=== PATIENT | female | born 1980 | race American Indian/Alaskan Native ===

== ENCOUNTER 2017-03-05 13:11 | Emergency (ER) | payer SELFPAY ==
[2017-03-05 13:50] VITALS: BP 157/102
--- NOTE | 2017-03-05 17:26 | Emergency Department Report ---
ED Back Pain/Injury HPI - General Chief Complaint: Upper Respiratory Infection Stated Complaint: FLU SYMPTOMS Time Seen by Provider: 03/05/17 17:25 Source: patient Limitations: No Limitations - History of Present Illness MD Complaint: back pain - Related Data Allergies Allergy/AdvReac Type Severity Reaction Status Date / Time No Known Allergies Allergy Unverified 03/05/17 13:46 ED Review of Systems ROS: Stated complaint: FLU SYMPTOMS Other details as noted in HPI ED Past Medical Hx - Past Medical History Previous Medical History?: No - Surgical History Past Surgical History?: No - Social History Smoking Status: Former Smoker Substance Use Type: Alcohol, Non Opiate Pain, Other ED Physical Exam - General Limitations: No Limitations ED Course Vital Signs 03/05/17 13:46 Temperature 98.1 F Pulse Rate 106 H Respiratory 20 Rate Blood Pressure 157/102 O2 Sat by Pulse 97 Oximetry Critical care attestation.: If time is entered above; I have spent that time in minutes in the direct care of this critically ill patient, excluding procedure time. ED Disposition Condition: Stable Referrals: PRIMARY CARE, [Primary Care Provider] - 3-5 Days
--- NOTE | 2017-03-05 18:10 | Emergency Department Report ---
- General Chief Complaint: Upper Respiratory Infection Stated Complaint: FLU SYMPTOMS Time Seen by Provider: 03/05/17 17:25 Source: patient Mode of arrival: Ambulatory Limitations: No Limitations - History of Present Illness Initial Comments: 36-year-old female past medical history neurofibromatosis, smoker presents with complaint of approximately 4 days of productive cough of yellowish sputum. Patient states she has had some minor body aches, subjective fever, no chills. Patient denies any chest pain or palpitations states that she has been taking [id number] cold medicine with minimal relief of her pain. MD Complaint: cough - Related Data Previous Rx's Medication Instructions Recorded Last Taken Type ALBUTEROL Inhaler [ProAir HFA 1 puff IH Q4H PRN #1 inha 03/05/17 Unknown Rx Inhaler] Azithromycin [Zithromax Z-MIR] 250 mg PO QDAY #6 tablet 03/05/17 Unknown Rx Naproxen [Naprosyn TAB] 500 mg PO BID PRN #20 tablet 03/05/17 Unknown Rx Prednisone [predniSONE 10 mg 10 mg PO .TAPER #1 tab.ds.pk 03/05/17 Unknown Rx (6-Day Pack, 21 Tabs)] guaiFENesin DM [Robitussin Dm] 10 ml PO Q6HR PRN #1 bottle 03/05/17 Unknown Rx Allergies Allergy/AdvReac Type Severity Reaction Status Date / Time No Known Allergies Allergy Unverified 03/05/17 13:46 ED Review of Systems ROS: Stated complaint: FLU SYMPTOMS Other details as noted in HPI ED Past Medical Hx - Past Medical History Previous Medical History?: No - Surgical History Past Surgical History?: No - Social History Smoking Status: Former Smoker Substance Use Type: Alcohol, Non Opiate Pain, Other - Medications Home Medications: Home Medications Medication Instructions Recorded Confirmed Last Taken Type ALBUTEROL Inhaler [ProAir HFA 1 puff IH Q4H PRN #1 inha 03/05/17 Unknown Rx Inhaler] Azithromycin [Zithromax Z-MIR] 250 mg PO QDAY #6 tablet 03/05/17 Unknown Rx Naproxen [Naprosyn TAB] 500 mg PO BID PRN #20 tablet 03/05/17 Unknown Rx Prednisone [predniSONE 10 mg 10 mg PO .TAPER #1 tab.ds.pk 03/05/17 Unknown Rx (6-Day Pack, 21 Tabs)] guaiFENesin DM [Robitussin Dm] 10 ml PO Q6HR PRN #1 bottle 03/05/17 Unknown Rx ED Physical Exam - General Limitations: No Limitations General appearance: alert, in no apparent distress - Head Head exam: Present: atraumatic, normocephalic - Eye Eye exam: Present: normal appearance, PERRL, EOMI - ENT ENT exam: Present: mucous membranes moist - Neck Neck exam: Present: normal inspection - Respiratory Respiratory exam: Present: normal lung sounds bilaterally, wheezes (mild wheezing on auscultation bilaterally). Absent: respiratory distress - Cardiovascular Cardiovascular Exam: Present: regular rate, normal rhythm. Absent: systolic murmur, diastolic murmur, rubs, gallop - GI/Abdominal GI/Abdominal exam: Present: soft, normal bowel sounds - Extremities Exam Extremities exam: Present: normal inspection - Back Exam Back exam: Present: normal inspection - Neurological Exam Neurological exam: Present: alert, oriented X3, CN II-XII intact, normal gait - Psychiatric Psychiatric exam: Present: normal affect, normal mood - Skin Skin exam: Present: warm, dry, intact, normal color, other (patient has skin tags and lesions on skin consistent with neurofibromatosis). Absent: rash ED Course Vital Signs 03/05/17 13:46 Temperature 98.1 F Pulse Rate 106 H Respiratory 20 Rate Blood Pressure 157/102 O2 Sat by Pulse 97 Oximetry ED Medical Decision Making - Lab Data Result diagrams: 03/05/17 18:42 03/05/17 18:42 - Medical Decision Making A/P: Reactive airway disease 1-naproxen, Bromfed, Z-Mir, prednisone Dosepak, albuterol inhaler. Lab work and x-ray unremarkable 2-follow up with primary care doctor 3-patient has experienced significant relief of wheezing, minimal wheezing on auscultation compared to initial exam 4- I advised patient to return to the ED for any fevers chills worsening productive cough or worsening wheezing despite use of medications. 5- I repeated pts vital signs before discharge: BP 147/88, o2 sat 97% on RA, HR 101, RR 18 T 99F oral. Critical care attestation.: If time is entered above; I have spent that time in minutes in the direct care of this critically ill patient, excluding procedure time. ED Disposition Clinical Impression: Reactive airway disease Qualifiers: Asthma severity: mild intermittent Asthma complication type: with acute exacerbation Qualified Code(s): J45.21 - Mild intermittent asthma with (acute) exacerbation Disposition: TO HOME OR SELFCARE Is pt being admited?: No Does the pt Need Aspirin: No Condition: Stable Instructions: Reactive Airways Disease (ED), Cold Symptoms (ED) Prescriptions: ALBUTEROL Inhaler [ProAir HFA Inhaler] 1 puff IH Q4H PRN #1 inha PRN Reason: Wheezing Azithromycin [Zithromax Z-MIR] 250 mg PO QDAY #6 tablet guaiFENesin DM [Robitussin Dm] 10 ml PO Q6HR PRN #1 bottle PRN Reason: Cough Naproxen [Naprosyn TAB] 500 mg PO BID PRN #20 tablet PRN Reason: Fever Prednisone [predniSONE 10 mg (6-Day Pack, 21 Tabs)] 10 mg PO .TAPER #1 tab.ds.pk Forms: Work/School Release Form(ED) Time of Disposition: 21:51
[2017-03-05] MEDS ORDERED: DELTASONE PO ONE (18:18)
[2017-03-05] MEDS ORDERED: DUONEB 0.5 MG-3 MG/3 ML SOLN IH ONE ×2 (18:18→21:07)
[2017-03-05] MEDS ORDERED: ZITHROMAX PO ONE (18:18)
[2017-03-05] MEDS ORDERED: ROBITUSSIN DM PO ONE (18:18)
[2017-03-05] MEDS ORDERED: PEPCID PO ONE (18:18)
[2017-03-05 19:17] LABS: Hematocrit 37.5 % (30.3-42.9); Hemoglobin 11.8 gm/dl (10.1-14.3); Mean Corpuscular HGB Conc 31 % (30-34); Mean Corpuscular Volume 78 fl (79-97); Platelet Count 337 K/mm3 (140-440); Red Cell Distribution Width 15.1 % (13.2-15.2); White Blood Count 11.4 K/mm3 (4.5-11.0)
--- NOTE | 2017-03-05 19:17 | XRay Report ---
FINAL REPORT PROCEDURE: XR CHEST ROUTINE 2V TECHNIQUE: PA and lateral chest radiographs were obtained. CPT 55391 HISTORY: worsening cough, productive COMPARISON: No prior studies are available for comparison. FINDINGS: Heart: Normal contour. Mediastinum/Vessels: Normal contour. Lungs/Pleural space: No infiltrate, effusion, or pneumothorax. Bony thorax: No acute osseous abnormality. Other: IMPRESSION: No infiltrates are identified.
[2017-03-05 19:18] LABS: Anion Gap 16 mmol/L; Blood Urea Nitrogen 6 mg/dL (7-17); Carbon Dioxide 24 mmol/L (22-30); Chloride 101.8 mmol/L (98-107); Glucose 91 mg/dL (65-100); Potassium 3.8 mmol/L (3.6-5.0); Sodium 138 mmol/L (137-145)
[2017-03-05 19:26] LABS: Mean Corpuscular Hemoglobin 25 pg (28-32)
[2017-03-05 20:17] LABS: Anisocytosis 1+; Blastocytes % (Manual) 0 %
[2017-03-05 20:18] LABS: Diff Status Complete; Hypochromasia 1+; Platelet Estimate Consistent w Auto
== END 2017-03-05 22:14 | disposition home or self-care (01) ==
LOC: ED 13:11
DX: J45.21 Mild intermittent asthma with (acute) exacerbation (principal); Z87.891 Personal history of nicotine dependence
CPT/HCPCS: 36415; 71020; 80048; 82805; 85007; 85025; 99284; J7512

== ENCOUNTER 2017-03-21 12:51 | Emergency (ER) | payer SELFPAY ==
[2017-03-21 15:49] LABS: Basophils % (Auto) 1.2 % (0.0-1.8); Eosinophils % (Auto) 14.5 % (0.0-4.3); Hematocrit 36.2 % (30.3-42.9); Hemoglobin 11.2 gm/dl (10.1-14.3); Mean Corpuscular HGB Conc 31 % (30-34); Mean Corpuscular Volume 79 fl (79-97); Platelet Count 270 K/mm3 (140-440); Red Blood Count 4.56 M/mm3 (3.65-5.03); Red Cell Distribution Width 15.9 % (13.2-15.2); White Blood Count 12.1 K/mm3 (4.5-11.0)
[2017-03-21 15:50] LABS: Anion Gap 16 mmol/L; BUN/Creatinine Ratio 17.14; Blood Urea Nitrogen 12 mg/dL (7-17); Carbon Dioxide 25 mmol/L (22-30); Glucose 94 mg/dL (65-100); Sodium 142 mmol/L (137-145)
[2017-03-21 15:52] LABS: Mean Corpuscular Hemoglobin 25 pg (28-32)
--- NOTE | 2017-03-21 16:55 | XRay Report ---
CHEST 2 VIEWS INDICATION: Cough, shortness of breath. COMPARISON: 03/05/2017. FINDINGS: PA and lateral chest radiographs demonstrate normal cardiomediastinal silhouette. Clear lungs. Mild anterior eventration of the right hemidiaphragm again noted. Intact bones. CONCLUSION: No acute disease in the chest, stable. Thank you for the opportunity to participate in this patient's care.
--- NOTE | 2017-03-21 17:50 | Emergency Department Report ---
Entered by GERMAN KARIMI, acting as scribe for MELANIE GONZALEZ PA. Chief Complaint: Chest Pain Stated Complaint: CHEST PAIN/NAUSEA/DIZZINESS Time Seen by Provider: 03/21/17 14:29 - HPI History of Present Illness: Patient c/o burning, sharp generalized chest pain for 2 days. Patient was seen in this ED 1 week ago and was told she had bronchitis. Patient states her chest pain is worse than 1 week ago. Notes her symptoms are similar to when she was diagnosed with bronchitis. Reports cough with sputum and SOB. Reports wheezing. Reports nausea and "a little vomiting" Denies PMHx of asthma. Denies taking new medications. - ROS Review of Systems: All systems are negative unless stated in the HPI above. - Exam Vital Signs: Vital Signs 03/21/17 13:03 Temperature 98.6 F Pulse Rate 99 H Respiratory 16 Rate Blood Pressure 132/85 O2 Sat by Pulse 99 Oximetry Physical Exam: GENERAL: Patient is alert and oriented x 3. No apparent distress, normal gait, atraumatic. LUNGS: Symmetrical with respiration. No rales or crackles, CTAB. Wheezing present bilaterally. HEART: Tachycardic. Regular rhythm with normal S1/S2 present. No murmurs, rubs , or gallops. MSE screening note: Focused history and physical exam performed. Due to findings the following was ordered: ED Medical Decision Making - Lab Data Result diagrams: 03/21/17 15:18 03/21/17 15:18 - EKG Data EKG shows normal: sinus rhythm Rate: normal - EKG Data When compared to previous EKG there are: no significant change Interpretation: no acute changes, normal EKG - Medical Decision Making Patient screened by provider in triage area. Labs and chest X-ray ordered and sent in for patient. Chest x-ray normal, labs within normal limits mildly elevated white count Patient can be seen in fast track by [facility] provider ED Disposition for MSE Condition: Stable This documentation as recorded by the scribe,GERMAN KARIMI,accurately reflects the service I personally performed and the decisions made by CARLOS rodríguez OYINLOLA A, PA.
[2017-03-21] MEDS ORDERED: DUONEB *Not for PRN Use IH ONE ×3 (18:53→20:47)
[2017-03-21] MEDS ORDERED: DELTASONE PO ONE (19:13)
[2017-03-21 20:19] LABS: Alanine Aminotransferase 18 units/L (7-56); Albumin 3.5 g/dL (3.9-5); Albumin/Globulin Ratio 1.3 %; Alkaline Phosphatase 80 units/L (35-129); Amylase 81 units/L (27-131); Bilirubin,Total < 0.20 mg/dL (0.1-1.2); Lipase 32 units/L (13-60); Total Protein 6.1 g/dL (6.3-8.2)
--- NOTE | 2017-03-21 20:46 | Emergency Department Report ---
ED Chest Pain HPI - General Chief Complaint: Chest Pain Stated Complaint: CHEST PAIN/NAUSEA/DIZZINESS Time Seen by Provider: 03/21/17 18:53 Source: patient Mode of arrival: Ambulatory Limitations: No Limitations - History of Present Illness Initial Comments: 36-year-old female past medical history asthma, neurofibromatosis presents with complaint of 3 days of intermittent shortness of breath and wheezing. Patient denies smoking. States that she has been constipated and has some sense of abdominal bloating but has been passing gas. On exam patient is wheezing and states she feels slightly short of breath. Denies chest pain palpitations, states she has not filled her medicines for asthma because of insurance issues. Denies any vomiting but states she felt slightly nauseous earlier. Onset/Timin -: days(s) Onset: during rest Pain Location: substernal Severity: mild Quality: tightness, other (wheezing) Consistency: intermittent Other Symptoms: cough Aspirin use within the Past 7 Days: (0) No - Related Data On Oral Contraceptives: No Previous Rx's Medication Instructions Recorded Last Taken Type ALBUTEROL Inhaler [ProAir HFA 1 puff IH Q4H PRN #1 inha 03/05/17 Unknown Rx Inhaler] Azithromycin [Zithromax Z-MIR] 250 mg PO QDAY #6 tablet 03/05/17 Unknown Rx Naproxen [Naprosyn TAB] 500 mg PO BID PRN #20 tablet 03/05/17 Unknown Rx Prednisone [predniSONE 10 mg 10 mg PO .TAPER #1 tab.ds.pk 03/05/17 Unknown Rx (6-Day Pack, 21 Tabs)] guaiFENesin DM [Robitussin Dm] 10 ml PO Q6HR PRN #1 bottle 03/05/17 Unknown Rx ALBUTEROL Inhaler [ProAir HFA 1 puff IH Q4H PRN #1 inha 03/21/17 Unknown Rx Inhaler] Albuterol Sulfate [Albuterol 0.63% 0.63 mg IH TID PRN #1 box 03/21/17 Unknown Rx NEBS] Docusate Sodium [Colace] 100 mg PO BID PRN #30 capsule 03/21/17 Unknown Rx Polyethylene Glycol 3350 [Miralax 17 gm PO QDAY PRN #1 box 03/21/17 Unknown Rx 3350] Prednisone [predniSONE 5 mg (6-Day 5 mg PO .TAPER #1 tab.ds.pk 03/21/17 Unknown Rx Pack, 21 Tabs)] Allergies Allergy/AdvReac Type Severity Reaction Status Date / Time No Known Allergies Allergy Unverified 03/05/17 13:46 Heart Score - HEART Score History: Slightly suspicious EKG: Normal Age: < 45 Risk factors: No known risk factors Troponin: < normal limit HEART Score: 0 ED Review of Systems ROS: Stated complaint: CHEST PAIN/NAUSEA/DIZZINESS Other details as noted in HPI Constitutional: denies: chills, fever Eyes: denies: eye pain, eye discharge, vision change ENT: denies: ear pain, throat pain Respiratory: shortness of breath, wheezing. denies: cough Cardiovascular: denies: chest pain, palpitations Endocrine: no symptoms reported Gastrointestinal: denies: abdominal pain, nausea, diarrhea Genitourinary: denies: urgency, dysuria, discharge Musculoskeletal: denies: back pain, joint swelling, arthralgia Skin: denies: rash, lesions Neurological: denies: headache, weakness, paresthesias Psychiatric: denies: anxiety, depression Hematological/Lymphatic: denies: easy bleeding, easy bruising ED Past Medical Hx - Past Medical History Previous Medical History?: Yes Additional medical history: bronchitis - Surgical History Past Surgical History?: No - Social History Smoking Status: Never Smoker Substance Use Type: Alcohol - Medications Home Medications: Home Medications Medication Instructions Recorded Confirmed Last Taken Type ALBUTEROL Inhaler [ProAir HFA 1 puff IH Q4H PRN #1 inha 03/05/17 Unknown Rx Inhaler] Azithromycin [Zithromax Z-MIR] 250 mg PO QDAY #6 tablet 03/05/17 Unknown Rx Naproxen [Naprosyn TAB] 500 mg PO BID PRN #20 tablet 03/05/17 Unknown Rx Prednisone [predniSONE 10 mg 10 mg PO .TAPER #1 tab.ds.pk 03/05/17 Unknown Rx (6-Day Pack, 21 Tabs)] guaiFENesin DM [Robitussin Dm] 10 ml PO Q6HR PRN #1 bottle 03/05/17 Unknown Rx ALBUTEROL Inhaler [ProAir HFA 1 puff IH Q4H PRN #1 inha 03/21/17 Unknown Rx Inhaler] Albuterol Sulfate [Albuterol 0.63% 0.63 mg IH TID PRN #1 box 03/21/17 Unknown Rx NEBS] Docusate Sodium [Colace] 100 mg PO BID PRN #30 capsule 03/21/17 Unknown Rx Polyethylene Glycol 3350 [Miralax 17 gm PO QDAY PRN #1 box 03/21/17 Unknown Rx 3350] Prednisone [predniSONE 5 mg (6-Day 5 mg PO .TAPER #1 tab.ds.pk 03/21/17 Unknown Rx Pack, 21 Tabs)] ED Physical Exam - General Limitations: No Limitations General appearance: alert, in no apparent distress - Head Head exam: Present: atraumatic, normocephalic - Eye Eye exam: Present: normal appearance, PERRL, EOMI - ENT ENT exam: Present: mucous membranes moist - Neck Neck exam: Present: normal inspection - Respiratory Respiratory exam: Present: wheezes (patient has audible wheezing bilaterally on auscultation of both lung shankar) - Cardiovascular Cardiovascular Exam: Present: regular rate, normal rhythm. Absent: systolic murmur, diastolic murmur, rubs, gallop - GI/Abdominal GI/Abdominal exam: Present: soft (abdomen soft nontender nondistended bowel sounds positive all 4 quadrants no Landis sign negative at McBurney's point, iliopsoas and Rovsing sign negative), normal bowel sounds - Extremities Exam Extremities exam: Present: normal inspection - Back Exam Back exam: Present: normal inspection - Neurological Exam Neurological exam: Present: alert, oriented X3, CN II-XII intact, normal gait - Psychiatric Psychiatric exam: Present: normal affect, normal mood - Skin Skin exam: Present: warm, dry, intact, normal color, other (patient has lesions on skin consistent with neurofibromatosis). Absent: rash ED Course Vital Signs 03/21/17 03/21/17 03/21/17 13:03 18:51 19:17 Temperature 98.6 F Pulse Rate 99 H 92 H Pulse Rate [ Throughout] Respiratory 16 20 22 Rate Respiratory Rate [ Throughout] Blood Pressure 132/85 Blood Pressure 114/81 [Left] O2 Sat by Pulse 99 100 Oximetry 03/21/17 03/21/17 03/21/17 20:53 20:54 21:52 Temperature Pulse Rate 89 Pulse Rate [ 82 89 Throughout] Respiratory 20 Rate Respiratory 12 18 Rate [ Throughout] Blood Pressure Blood Pressure 130/79 [Left] O2 Sat by Pulse 99 Oximetry RAJ score - Raj Score Age > 65: (0) No Aspirin use within the Past 7 Days: (0) No 3 or more CAD Risk Factors: (0) No 2 or more Angina events in past 24 hrs: (0) No Known CAD with more than 50% Stenosis: (0) No Elevated Cardiac Markers: (0) No ST Deviation Greater than 0.5mm: (0) No RAJ Score: 0 ED Medical Decision Making - Lab Data Result diagrams: 03/21/17 15:18 03/21/17 15:18 - Medical Decision Making A/P: Asthma exacerbation, constipation 1-patient feels significantly better after DuoNeb treatments and prednisone, will give prednisone Dosepak refill albuterol inhaler as well as nebulizer vials 2-patient has low RAJ score and low HEART score, low risk stratification. I discussed this with Dr. Rico and will give the patient outpatient cardiology follow-up. Troponin negative 2, d-dimer negative 3-Colace and MiraLAX for constipation. Patient is still passing gas and abdomen is nontender to palpation 4- patient's oxygen saturation is 100% on room air Critical care attestation.: If time is entered above; I have spent that time in minutes in the direct care of this critically ill patient, excluding procedure time. ED Disposition Clinical Impression: Asthma exacerbation Disposition: DC-01 TO HOME OR SELFCARE Is pt being admited?: No Does the pt Need Aspirin: No Condition: Stable Instructions: Asthma (ED) Prescriptions: ALBUTEROL Inhaler [ProAir HFA Inhaler] 1 puff IH Q4H PRN #1 inha PRN Reason: Wheezing Albuterol Sulfate [Albuterol 0.63% NEBS] 0.63 mg IH TID PRN #1 box PRN Reason: Wheezing Docusate Sodium [Colace] 100 mg PO BID PRN #30 capsule PRN Reason: Constipation Polyethylene Glycol 3350 [Miralax 3350] 17 gm PO QDAY PRN #1 box PRN Reason: Constipation Prednisone [predniSONE 5 mg (6-Day Pack, 21 Tabs)] 5 mg PO .TAPER #1 tab.ds.pk Referrals: LANDY ARMSTRONG MD [Staff Physician] - 3-5 Days MEGHNA SORIA MD [Staff Physician] - 3-5 Days Forms: Work/School Release Form(ED) Time of Disposition: 22:44
[2017-03-21 20:49] LABS: Bilirubin,Direct < 0.2 mg/dL (0-0.2)
[2017-03-21 21:52] VITALS: BP 130/79
== END 2017-03-21 23:05 | disposition home or self-care (01) ==
LOC: ED 12:51
DX: J45.901 Unspecified asthma with (acute) exacerbation (principal)
CPT/HCPCS: 36415; 71020; 80048; 80074; 82150; 82805; 83690; 84484; 84703; 85025; 85379; 93005; 93010; 94640; 99285; J7512

== ENCOUNTER 2017-04-04 08:28 | Inpatient (IN) | payer OTHER ==
[2017-04-04] MEDS ORDERED: PROVENTIL IH ONE ×4 (09:00→12:32)
[2017-04-04] MEDS ORDERED: DUONEB *Not for PRN Use IH ONE ×3 (09:00→10:13)
[2017-04-04] MEDS ORDERED: DELTASONE PO ONE (09:09)
[2017-04-04] MEDS ORDERED: DELTASONE ONE (09:10)
--- NOTE | 2017-04-04 10:18 | Emergency Department Report ---
ED Shortness of Breath HPI - General Chief Complaint: Adult Asthma Stated Complaint: ASTHMA/KANCHAN Time Seen by Provider: 04/04/17 10:08 Source: patient Mode of arrival: Ambulatory Limitations: No Limitations - History of Present Illness Initial Comments: 36-year-old female presents to the emergency department complaining of difficulty breathing. Patient states she began having difficulty breathing this morning. She reports wheezing and tightness in her chest. She reports cough productive of green sputum and nausea. There has been no fever. Patient states that she was diagnosed with asthma approximately one year ago. At that time, she was being treated for bronchitis. She states she is not currently on any medications for her asthma. She had been doing well until approximately 3 weeks ago when she had another bout of bronchitis. She states she was treated with the steroids taper. Prior to my examining the patient, the patient has received one DuoNeb treatment and an additional 2.5 mg of albuterol. She has also received oral prednisone. She states that she feels somewhat better, but is not at baseline. There are no other complaints. MD Complaint: shortness of breath, cough -: Sudden, This morning Severity: mild Pain Scale: 1 Quality: other (tightness) Consistency: constant Improves With: bronchodilators Worsens With: nothing Known History Of: asthma Context: recent URI Associated Symptoms: denies other symptoms - Related Data Previous Rx's Medication Instructions Recorded Last Taken Type ALBUTEROL Inhaler [ProAir HFA 1 puff IH Q4H PRN #1 inha 03/05/17 Unknown Rx Inhaler] Azithromycin [Zithromax Z-MIR] 250 mg PO QDAY #6 tablet 03/05/17 Unknown Rx Naproxen [Naprosyn TAB] 500 mg PO BID PRN #20 tablet 03/05/17 Unknown Rx Prednisone [predniSONE 10 mg 10 mg PO .TAPER #1 tab.ds.pk 03/05/17 Unknown Rx (6-Day Pack, 21 Tabs)] guaiFENesin DM [Robitussin Dm] 10 ml PO Q6HR PRN #1 bottle 03/05/17 Unknown Rx ALBUTEROL Inhaler [ProAir HFA 1 puff IH Q4H PRN #1 inha 03/21/17 Unknown Rx Inhaler] Albuterol Sulfate [Albuterol 0.63% 0.63 mg IH TID PRN #1 box 03/21/17 Unknown Rx NEBS] Docusate Sodium [Colace] 100 mg PO BID PRN #30 capsule 03/21/17 Unknown Rx Polyethylene Glycol 3350 [Miralax 17 gm PO QDAY PRN #1 box 03/21/17 Unknown Rx 3350] Prednisone [predniSONE 5 mg (6-Day 5 mg PO .TAPER #1 tab.ds.pk 03/21/17 Unknown Rx Pack, 21 Tabs)] Allergies Allergy/AdvReac Type Severity Reaction Status Date / Time No Known Allergies Allergy Verified 04/04/17 09:06 ED Review of Systems ROS: Stated complaint: ASTHMA/KANCHAN Other details as noted in HPI Comment: All other systems reviewed and negative Respiratory: cough, shortness of breath, wheezing Cardiovascular: chest pain Gastrointestinal: nausea ED Past Medical Hx - Past Medical History Previous Medical History?: Yes Hx Asthma: Yes Additional medical history: bronchitis - Surgical History Past Surgical History?: No - Family History Family history: no significant - Social History Smoking Status: Never Smoker Substance Use Type: None - Medications Home Medications: Home Medications Medication Instructions Recorded Confirmed Last Taken Type ALBUTEROL Inhaler [ProAir HFA 1 puff IH Q4H PRN #1 inha 03/05/17 Unknown Rx Inhaler] Azithromycin [Zithromax Z-MIR] 250 mg PO QDAY #6 tablet 03/05/17 Unknown Rx Naproxen [Naprosyn TAB] 500 mg PO BID PRN #20 tablet 03/05/17 Unknown Rx Prednisone [predniSONE 10 mg 10 mg PO .TAPER #1 tab.ds.pk 03/05/17 Unknown Rx (6-Day Pack, 21 Tabs)] guaiFENesin DM [Robitussin Dm] 10 ml PO Q6HR PRN #1 bottle 03/05/17 Unknown Rx ALBUTEROL Inhaler [ProAir HFA 1 puff IH Q4H PRN #1 inha 03/21/17 Unknown Rx Inhaler] Albuterol Sulfate [Albuterol 0.63% 0.63 mg IH TID PRN #1 box 03/21/17 Unknown Rx NEBS] Docusate Sodium [Colace] 100 mg PO BID PRN #30 capsule 03/21/17 Unknown Rx Polyethylene Glycol 3350 [Miralax 17 gm PO QDAY PRN #1 box 03/21/17 Unknown Rx 3350] Prednisone [predniSONE 5 mg (6-Day 5 mg PO .TAPER #1 tab.ds.pk 03/21/17 Unknown Rx Pack, 21 Tabs)] ED Physical Exam - General Limitations: No Limitations General appearance: alert, in no apparent distress - Head Head exam: Present: atraumatic, normocephalic - Eye Eye exam: Present: normal appearance, PERRL, EOMI - ENT ENT exam: Present: normal exam, normal orophraynx, mucous membranes moist - Neck Neck exam: Present: normal inspection, full ROM. Absent: tenderness - Respiratory Respiratory exam: Present: wheezes (diffuse posterior expiratory). Absent: respiratory distress - Cardiovascular Cardiovascular Exam: Present: regular rate, normal rhythm, normal heart sounds - GI/Abdominal GI/Abdominal exam: Present: soft, normal bowel sounds. Absent: distended, tenderness - Extremities Exam Extremities exam: Present: normal inspection, full ROM. Absent: tenderness - Neurological Exam Neurological exam: Present: alert, oriented X3. Absent: motor sensory deficit - Skin Skin exam: Present: warm, dry, intact, other (multiple skin tags noted all over) ED Course Vital Signs 04/04/17 04/04/17 08:29 09:15 Temperature 98.6 F Pulse Rate 111 H Respiratory 26 H 20 Rate Blood Pressure 154/90 O2 Sat by Pulse 95 100 Oximetry ED Medical Decision Making - Radiology Data Radiology results: image reviewed interpreted by me: Chest x-ray shows no acute cardiopulmonary abnormality. - Medical Decision Making Imaging results reviewed and discussed with the patient. After multiple nebulizer treatments, the patient continues to have wheezing and states she is not breathing at her baseline. Obtaining labs, giving additional nebulizer treatments, and giving IV magnesium. Patient is to be admitted by the hospitalist. - Differential Diagnosis asthma exacerbation, bronchitis, pneumonia Critical care attestation.: If time is entered above; I have spent that time in minutes in the direct care of this critically ill patient, excluding procedure time. ED Disposition Clinical Impression: Asthma exacerbation Disposition: OP ADMIT IP TO THIS HOSP Is pt being admited?: Yes Condition: Stable Time of Disposition: 12:35
--- NOTE | 2017-04-04 11:30 | XRay Report ---
CHEST ONE VIEW INDICATION: Productive cough. COMPARISON: 03/21/2017. FINDINGS: Portable, single, frontal chest radiograph demonstrates normal cardiomediastinal silhouette. Clear lungs. Unremarkable bones. Stable mildly eventrated right hemidiaphragm. CONCLUSION: No acute disease in the chest. Thank you for the opportunity to participate in this patient's care.
[2017-04-04] MEDS ORDERED: MAGNESIUM SULFATE 2GM/50ML 2 GM/50 ML BAG IV ONE (12:32)
--- NOTE | 2017-04-04 13:17 | Admit Criteria Form ---
Admission Criteria Documentation: ASTHMA Clinical Indications for Admission to Inpatient Care (Place 'X' for any and all applicable criteria): Admission is indicated for ANY ONE of the following (1)(2)(3)(4)(5): [ ]I. Absent or markedly diminished breath sounds (silent chest) [ ]II. Oxygen saturation < 92% [ ]III. PaCO2 = / > 42 mm Hg (5.6 kPa) [ ]IV. Peak expiratory flow rate < 40% of predicted or personal best after treatment. [ ]V. Peak expiratory flow rate < 33% of predicted or personal before after treatment [ ]. Change in mental status [ ]VII. Ventilatory support required [ ]VIII. PaO2 < 60 mm Hg (8.0 kPa) [ ]IX. Cyanosis [ ]X. Cardiac dysrhythmia (e.g., bradycardia) [ ]XI. Hemodynamic instability [ ]XII. Radiographic evidence of complication requiring inpatient treatment (e.g., pneumonia, pneumothorax) [X ]XIII. Inpatient admission required rather than observation care (also use Asthma: Observation Care guideline as appropriate) because of ANY ONE of the following: [X ]a) Respiratory finding that is severe or persistent (eg, dyspnea, tachypnea, accessory muscle use) [ ]b) Airflow measurements less than 60% of predicted or personal best that persist (e.g., over 24 hours) or worsen despite treatments [ ]c) Supplemental oxygen or respiratory treatments for over 24 hours that are performable only in acute inpatient setting [ ]d) Other condition, treatment or monitoring requiring inpatient admission. Extended stay beyond goal length of stay may be needed for (26)(27)(28): [ ]a) Severe respiratory failure (23) (29) (30) [ ]b) Secondary causes and complications (25) [ ]c) Status asthmaticus [ ]d) Chronic obstructive asthma [ ]e) Older patients (29) [ ]f) Slow resolution [ ]g) Clinically significant exacerbation of comorbidities (eg, tara. heart failure, atrial fibrillation) The original [employer] content created by [employer] has been revised. The portions of the content which have been revised are identified through the use of italic text or in bold, and [email or web address] has neither reviewed nor approved the modified material. All other unmodified content is copyright [employer] Please see references footnoted in the original [facility] edition 2016 Admission Criteria Met: Yes
[2017-04-04 13:24] LABS: Hemoglobin 11.6 gm/dl (10.1-14.3); Mean Corpuscular HGB Conc 32 % (30-34); Mean Corpuscular Volume 77 fl (79-97); Platelet Count 307 K/mm3 (140-440); Red Blood Count 4.66 M/mm3 (3.65-5.03); Red Cell Distribution Width 15.9 % (13.2-15.2); White Blood Count 13.3 K/mm3 (4.5-11.0)
[2017-04-04 13:30] LABS: Mean Corpuscular Hemoglobin 25 pg (28-32)
[2017-04-04 13:41] LABS: Eosinophils % (Auto) 1.2 % (0.0-4.3)
[2017-04-04 13:42] LABS: Anion Gap 17 mmol/L; BUN/Creatinine Ratio 7.14; Blood Urea Nitrogen 5 mg/dL (7-17); Calcium 10.4 mg/dL (8.4-10.2); Carbon Dioxide 25 mmol/L (22-30); Chloride 101.5 mmol/L (98-107); Glucose 131 mg/dL (65-100); Potassium 4.2 mmol/L (3.6-5.0); Sodium 139 mmol/L (137-145)
[2017-04-04] MEDS ORDERED: ZOFRAN IV PRN (13:57)
[2017-04-04] MEDS ORDERED: DULCOLAX PR PRN (13:57)
[2017-04-04] MEDS ORDERED: MILK OF MAGNESIA PO PRN (13:57)
[2017-04-04 14:15] LABS: Blastocytes % (Manual) 0 %
[2017-04-04 14:16] LABS: Diff Status Complete; Hypochromasia 1+; Platelet Estimate Consistent w Auto; Polychromasia Few
[2017-04-04] MEDS: TYLENOL PO PRN ×2 (19:02→22:27)
--- NOTE | 2017-04-05 08:38 | History and Physical Report ---
History of Present Illness Date of admission: 04/04/17 13:57 Chief complaint: I cant breathe History of present illness: 36 YO Female with Asthma, Obesity, Medication Noncompliance, Lost to outpatient F/U presents to ED for evaluation. Pt states that she has been experiencing shortness of breath for the past day with worsening symptoms over the past 2 hours. Pt acknowledges wheezing and dry cough. Pt acknowledges exposure to asthma triggers. Pt denies feever, chills, CP, Palpitations, NVD, syncope, prolonged immobility/travel, leg swelling, calf pain, Individual/family history of DVT/PE, or recent ill contacts. Past History Past Medical History: other (asthma,obesity) Past Surgical History: No surgical history, Other (reviewed) Social history: single, lives with family. denies: alcohol abuse, prescription drug abuse Family history: hypertension Medications and Allergies Allergies Allergy/AdvReac Type Severity Reaction Status Date / Time No Known Allergies Allergy Verified 04/04/17 09:06 Home Medications Medication Instructions Recorded Confirmed Last Taken Type guaiFENesin DM [Robitussin Dm] 10 ml PO Q6HR PRN #1 bottle 03/05/17 04/04/17 03:00 Rx Active Meds: Active Medications Acetaminophen (Tylenol) 650 mg PO Q4H PRN PRN Reason: Pain MILD(1-3)/Fever >100.5/ZENDEJAS Last Admin: 04/04/17 22:27 Dose: 650 mg Bisacodyl (Dulcolax) 10 mg MA QDAY PRN PRN Reason: Constipation unrelieved by [facility] [place] Azithromycin 500 mg/ Sodium (Chloride) 250 mls @ 250 mls/hr IV Q24HR [facility] Magnesium Hydroxide (Milk Of Magnesia) 30 ml PO Q4H PRN PRN Reason: Constipation Methylprednisolone Sodium Succinate (Solu-Medrol) 40 mg IV BID [facility] Last Admin: 04/04/17 22:20 Dose: 40 mg Ondansetron HCl (Zofran) 4 mg IV Q8H PRN PRN Reason: N/V unrelieved by Reglan Review of Systems All systems: negative Constitutional: no weight loss Ears, nose, mouth and throat: no ear pain Breasts: no swelling Cardiovascular: shortness of breath, no chest pain Respiratory: cough Gastrointestinal: no abdominal pain Genitourinary Female: no dysuria Rectal: no pain Musculoskeletal: no neck stiffness Integumentary: no rash Neurological: no head injury Psychiatric: no anxiety Endocrine: no cold intolerance Hematologic/Lymphatic: no easy bruising Allergic/Immunologic: no urticaria Exam - Constitutional Vitals: Temp Pulse Resp BP Pulse Ox 97.4 F L 106 H 22 135/77 98 04/04/17 22:00 04/04/17 22:00 04/04/17 22:00 04/04/17 22:00 04/04/17 22:00 General appearance: Present: mild distress, obese - EENT Eyes: Present: PERRL ENT: hearing intact, clear oral mucosa - Neck Neck: Present: supple, normal ROM - Respiratory Respiratory effort: normal Respiratory: bilateral: wheezing - Cardiovascular Heart Sounds: Present: S1 & S2. Absent: rub, click - Extremities Extremities: pulses symmetrical, No edema Peripheral Pulses: within normal limits - Abdominal General gastrointestinal: Present: soft, non-tender, non-distended, normal bowel sounds Female genitourinary: Present: normal - Integumentary Integumentary: Present: clear, warm, dry - Musculoskeletal Musculoskeletal: gait normal, strength equal bilaterally - Psychiatric Psychiatric: appropriate mood/affect, intact judgment & insight - Neurologic Neurologic: CNII-XII intact, moves all extremities Results - Labs CBC & Chem 7: 04/04/17 12:50 04/04/17 12:50 Assessment and Plan - Patient Problems (1) Acute respiratory failure with hypoxemia Current Visit: Yes Status: Acute Plan to address problem: supplemental oxygen, nebs, aspiration precautions, NIPPV as clinically indicated (2) Obesity Current Visit: Yes Status: Acute Qualifiers: Obesity type: O Obesity classification: O Serious obesity comorbidity presence: S Body mass index: BMI 40.0-44.9 Plan to address problem: balanced diet, increased physical activity (3) Noncompliance Current Visit: Yes Status: Acute Plan to address problem: Pt and family counseled regarding asthma triggers (4) Asthma exacerbation Current Visit: Yes Status: Acute Plan to address problem: supplemental oxygen, nebs, steroids, abx, supportive care (5) GERD (gastroesophageal reflux disease) Current Visit: Yes Status: Acute Qualifiers: Esophagitis presence: E Plan to address problem: ppi therapy (6) DVT prophylaxis Current Visit: Yes Status: Acute
[2017-04-05] MEDS: PROTONIX PO SCH (09:37)
[2017-04-05] MEDS ORDERED: PROVENTIL IH PRN (09:50)
[2017-04-05] MEDS: ZITHROMAX 500 MG in NACL 0.9% 250ML 250 ML IV SCH (13:34)
[2017-04-05] MEDS: DUONEB *Not for PRN Use IH SCH ×3 (14:15→19:32)
--- NOTE | 2017-04-05 15:02 | Progress Note ---
Assessment and Plan Acute respiratory failure with hypoxemia - likely due to acute asthma exacerbation - cont supplemental oxygen, nebs, aspiration precautions, - NIPPV as clinically indicated Morbid Obesity - likely due to access calorie - counselled for balanced diet, increase physical activity Acute Asthma exacerbation - cont supplemental oxygen, nebs, steroids, abx SIRS - had leukocytosis and tachycardia on admission - CXR clear - likely from asthma exacerbation GERD (gastroesophageal reflux disease) - continue ppi therapy Subjective Date of service: 04/05/17 Interval history: Patient seen and examined. Medical records and medication list reviewed. No acute event overnight noted by the RN. Patient denies any chest pain but c/o difficulty breathing on exertion. Patient is tolerating diet. Discussed plan of care at bedside with patient. Objective - Exam Narrative Exam: GENERAL: well-developed obese -[place] female lying on bed appeared to be in no discomfort. HEENT: Normocephalic. Atraumatic. No conjunctival congestion or icterus. Patient has moist mucous membranes. NECK: Supple. Trachea midline. CHEST/LUNGS: Diffuse wheezes auscultated bilaterally, breathing nonlabored. No crackles or rhonchi. HEART/CARDIOVASCULAR: Regular in rate and rhythm. S1 and S2 positive. ABDOMEN: Abdomen is soft, nontender. Patient has normal bowel sounds. SKIN: There is no rash. Warm and dry. NEURO: No focal motor deficit. Follows command. MUSCULOSKELETAL: No joint effusion or tenderness. EXTRIMITY: No edema, no cyanosis or clubbing. PSYCH: Cooperative. - Constitutional Vitals: Vital Signs - 12hr 04/05/17 04/05/17 04/05/17 07:25 09:08 14:16 Temperature 97.9 F Pulse Rate [ 97 H Bilateral Throughout] Pulse Rate [ 95 H Left From Monitor] Respiratory 16 Rate Respiratory 18 Rate [Bilateral Throughout] Blood Pressure 134/85 [Left Arm] O2 Sat by Pulse 16 L 100 Oximetry 04/05/17 14:18 Temperature Pulse Rate [ 96 H Bilateral Throughout] Pulse Rate [ Left From Monitor] Respiratory Rate Respiratory 17 Rate [Bilateral Throughout] Blood Pressure [Left Arm] O2 Sat by Pulse Oximetry - Labs CBC & Chem 7: 04/04/17 12:50 04/04/17 12:50 - Imaging and cardiology Chest x-ray: report reviewed
[2017-04-06] MEDS: DUONEB *Not for PRN Use IH SCH ×3 (02:33→13:46)
[2017-04-06] MEDS: ZITHROMAX 500 MG in NACL 0.9% 250ML 250 ML IV SCH (09:35)
[2017-04-06] MEDS: PROTONIX PO SCH (09:35)
--- NOTE | 2017-04-06 10:57 | Discharge Summary ---
Providers - Providers Date of Admission: 04/04/17 13:57 Date of discharge: 04/06/17 Attending physician: BREANNE HUMPHRIES Primary care physician: [employer] Hospitalization Condition: Stable Hospital course: Discharge Diagnosis and management: Acute respiratory failure with hypoxemia - likely due to acute asthma exacerbation - cont supplemental oxygen, nebs, aspiration precautions, - NIPPV as clinically indicated Morbid Obesity - likely due to access calorie - counselled for balanced diet, increase physical activity Acute Asthma exacerbation - cont supplemental oxygen, nebs, steroids, abx SIRS - had leukocytosis and tachycardia on admission - CXR clear - likely from asthma exacerbation GERD (gastroesophageal reflux disease) - continue ppi therapy Disposition: - TO HOME OR SELFCARE Time spent for discharge: 32 minutes Exam - Constitutional Vitals: Temp Pulse Resp BP Pulse Ox 98.6 F 87 17 132/94 100 04/06/17 07:00 04/06/17 08:32 04/06/17 08:32 04/06/17 07:00 04/06/17 07:00 Plan Activity: advance as tolerated Weight Bearing Status: Weight Bear as Tolerated Diet: low fat, low salt Follow up with: PRIMARY CARE, [Primary Care Provider] - 3-5 Days Prescriptions: ALBUTEROL Inhaler [Proair] 2 puff IH QID PRN 30 Days PRN Reason: Shortness Of Breath ALBUTEROL NEB's [Proventil 0.083% NEBS] 2.5 mg IH Q3H PRN #30 nebu PRN Reason: Shortness Of Breath Azithromycin [Zithromax TAB] 500 mg PO QDAY #5 tablet predniSONE [Deltasone] 50 mg PO QDAY #7 tab
[2017-04-06 17:23] VITALS: BP 130/80
[2017-04-07] MEDS ORDERED: ZITHROMAX PO SCH (10:00)
== END 2017-04-06 17:30 | disposition home or self-care (01) | DRG 189 ==
LOC: ED 08:28 → 3A 13:57
PROVIDERS: ADMIT Internal Medicine; ATTEND Internal Medicine
DX: J96.01 Acute respiratory failure with hypoxia (principal); J45.901 Unspecified asthma with (acute) exacerbation; R65.10 Systemic inflammatory response syndrome (SIRS) of non-infectious origin without acute organ dysfunction; Z68.41 Body mass index [BMI] 40.0-44.9, adult; K21.9 Gastro-esophageal reflux disease without esophagitis; E66.01 Morbid (severe) obesity due to excess calories; Z91.14 Patient's other noncompliance with medication regimen; Z71.3 Dietary counseling and surveillance; Z82.49 Family history of ischemic heart disease and other diseases of the circulatory system
CPT/HCPCS: 36415; 71010; 80048; 85007; 85025; 94640; 96365; J0456; J2920; J3475; J7050; J7512

== ENCOUNTER 2018-01-21 09:16 | Inpatient (IN) | payer OTHER ==
--- NOTE | 2018-01-21 10:12 | XRay Report ---
CHEST 2 VIEWS INDICATION: Shortness of breath. COMPARISON: 04/04/2017 FINDINGS: PA and lateral chest radiographs again demonstrate normal cardiomediastinal silhouette and approximately 4 cm elevation/anterior eventration of the right hemidiaphragm relative to the left. Mild right basilar atelectasis; otherwise unremarkable lungs. Intact bones. CONCLUSION: Slight right basilar atelectasis, as described. Thank you for the opportunity to participate in this patient's care.
[2018-01-21 10:24] LABS: BUN/Creatinine Ratio 13; Blood Urea Nitrogen 8 mg/dL (7-17); Calcium 10.9 mg/dL (8.4-10.2); Hemolysis Index 10
[2018-01-21 10:49] LABS: Red Blood Count 4.67 M/mm3 (3.65-5.03)
[2018-01-21 10:50] LABS: Basophils % (Auto) 1.8 % (0.0-1.8); Eosinophils % (Auto) 5.7 % (0.0-4.3); Hematocrit 33.1 % (30.3-42.9); Hemoglobin 9.8 gm/dl (10.1-14.3); Lymphocytes # (Auto) 1.6 K/mm3 (1.2-5.4); Lymphocytes % (Auto) 18.8 % (13.4-35.0); Mean Corpuscular HGB Conc 30 % (30-34); Mean Corpuscular Hemoglobin 21 pg (28-32); Mean Corpuscular Volume 71 fl (79-97); Mean Platelet Volume 8.8 fl (6-12); Monocytes # (Auto) 0.9 K/mm3 (0.0-0.8); Monocytes % (Auto) 10.7 % (0.0-7.3); Platelet Count 377 K/mm3 (140-440)
[2018-01-21 10:51] LABS: Basophils # (Auto) 0.2 K/mm3 (0.0-0.1); Eosinophils # (Auto) 0.5 K/mm3 (0.0-0.4)
[2018-01-21] MEDS ORDERED: ZOFRAN IV ONE (11:39)
[2018-01-21] MEDS ORDERED: MORPHINE IV ONE (11:39)
--- NOTE | 2018-01-21 12:59 | Emergency Department Report ---
ED General Adult HPI - General Chief complaint: Dyspnea/Respdistress Stated complaint: CHEST/SHOULDER PAIN Time Seen by Provider: 01/21/18 11:20 Source: patient Mode of arrival: Ambulatory Limitations: No Limitations - History of Present Illness Initial comments: Patient reports the acute onset of right posterior chest pain above her right flank yesterday afternoon. She stated that the pain felt worse if she side or took a deep yawn. She did not feel specifically short of breath and she denied cough. She states that she has never had a pain like this before. She did not report radiation of the pain to me. She denied nausea or vomiting and any sort of symptoms. She has had no recent travel. She denied leg pain or swelling. She has no family history of VTE. -: Sudden (acute onset) Location: chest, back, right Quality: aching Consistency: intermittent Improves with: none Worsens with: none Associated Symptoms: denies other symptoms Treatments Prior to Arrival: none - Related Data Home Medications Medication Instructions Recorded Confirmed Last Taken No Known Home Medications [No 01/21/18 01/21/18 Unknown Reported Home Medications] Allergies Allergy/AdvReac Type Severity Reaction Status Date / Time No Known Allergies Allergy Verified 04/04/17 09:06 ED Review of Systems ROS: Stated complaint: CHEST/SHOULDER PAIN Other details as noted in HPI Constitutional: denies: chills, fever Eyes: denies: eye pain, eye discharge, vision change ENT: denies: ear pain, throat pain Respiratory: denies: cough, shortness of breath, wheezing Cardiovascular: as per HPI, chest pain. denies: palpitations Endocrine: no symptoms reported Gastrointestinal: denies: abdominal pain, nausea, diarrhea Genitourinary: denies: urgency, dysuria, discharge Musculoskeletal: denies: back pain, joint swelling, arthralgia Skin: denies: rash, lesions Neurological: denies: headache, weakness, paresthesias Psychiatric: denies: anxiety, depression Hematological/Lymphatic: denies: easy bleeding, easy bruising ED Past Medical Hx - Past Medical History Previous Medical History?: Yes Hx Asthma: Yes Additional medical history: bronchitis, MOLES. Neurofibromatosis - Surgical History Past Surgical History?: Yes Additional Surgical History: MOLES REMOVED FROM BACK OF HEAD - Social History Smoking Status: Former Smoker Substance Use Type: Alcohol - Medications Home Medications: Home Medications Medication Instructions Recorded Confirmed Last Taken Type No Known Home Medications [No 01/21/18 01/21/18 Unknown History Reported Home Medications] ED Physical Exam - General Limitations: No Limitations General appearance: alert, in no apparent distress - Head Head exam: Present: atraumatic, normocephalic - Eye Eye exam: Present: normal appearance, PERRL, EOMI. Absent: scleral icterus - ENT ENT exam: Present: mucous membranes moist - Neck Neck exam: Present: normal inspection - Respiratory Respiratory exam: Present: normal lung sounds bilaterally. Absent: respiratory distress - Cardiovascular Cardiovascular Exam: Present: regular rate, normal rhythm. Absent: systolic murmur, diastolic murmur, rubs, gallop - GI/Abdominal GI/Abdominal exam: Present: soft, normal bowel sounds. Absent: distended, tenderness, guarding, rebound, rigid - Extremities Exam Extremities exam: Present: normal inspection, normal capillary refill. Absent: tenderness, pedal edema, joint swelling, calf tenderness - Back Exam Back exam: Present: normal inspection. Absent: CVA tenderness (R), CVA tenderness (L), muscle spasm, paraspinal tenderness, vertebral tenderness - Neurological Exam Neurological exam: Present: alert, oriented X3, CN II-XII intact. Absent: motor sensory deficit - Psychiatric Psychiatric exam: Present: normal affect, normal mood - Skin Skin exam: Present: warm, dry, intact, normal color. Absent: rash ED Course Vital Signs 01/21/18 01/21/18 01/21/18 09:33 10:57 11:00 Temperature 98.3 F Pulse Rate 93 H 82 Respiratory 16 13 17 Rate Blood Pressure 131/79 130/83 O2 Sat by Pulse 99 100 Oximetry 01/21/18 01/21/18 01/21/18 11:30 12:00 12:30 Temperature Pulse Rate 76 79 78 Respiratory 15 20 19 Rate Blood Pressure 128/79 132/79 135/78 O2 Sat by Pulse 100 100 100 Oximetry 01/21/18 01/21/18 01/21/18 12:43 13:13 14:00 Temperature Pulse Rate 81 Respiratory 16 16 14 Rate Blood Pressure 127/82 O2 Sat by Pulse 100 Oximetry - Reevaluation(s) Reevaluation #1: Patient has remained clinically stable. Repeat CBC is pending. A CT the abdomen and pelvis further delineated the patient's fluid collection. Personally, I think the patient probably has had a spontaneous retroperitoneal hematoma. I do not yet see any evidence of underlying infection although the urinalysis sample is still not received. However the exact etiology of this process is still yet unknown. Patient is admitted to the hospitalist service by Dr. Pennington for further care and evaluation. 01/21/18 17:36 01/21/18 17:38 ED Medical Decision Making - Lab Data Result diagrams: 01/21/18 09:44 01/21/18 09:44 Laboratory Results - last 24 hr 01/21/18 01/21/18 09:44 09:44 WBC 8.6 RBC 4.67 Hgb 9.8 L Hct 33.1 MCV 71 L MCH 21 L MCHC 30 RDW 18.0 H Plt Count 377 Lymph % (Auto) 18.8 Fisher % (Auto) 10.7 H Eos % (Auto) 5.7 H Baso % (Auto) 1.8 Lymph # 1.6 Fisher # 0.9 H Eos # 0.5 H Baso # 0.2 H Seg Neutrophils % 63.0 Seg Neutrophils # 5.5 Sodium 139 Potassium 4.8 Chloride 103.3 Carbon Dioxide 27 Anion Gap 14 BUN 8 Creatinine 0.6 L Estimated GFR > 60 BUN/Creatinine Ratio 13 Glucose 126 H Calcium 10.9 H Troponin T < 0.010 - EKG Data -: EKG Interpreted by Me EKG shows normal: sinus rhythm, axis, intervals, QRS complexes, ST-T waves Rate: normal - EKG Data Interpretation: normal EKG - Radiology Data interpreted by me: Chest x-ray shows mild right basilar discoid atelectasis Critical care attestation.: If time is entered above; I have spent that time in minutes in the direct care of this critically ill patient, excluding procedure time. ED Disposition Clinical Impression: Right flank pain, Subphrenic fluid collection Disposition: OP ADMIT IP TO THIS HOSP Is pt being admited?: Yes Does the pt Need Aspirin: No (would hold aspirin and anticoagulants) Condition: Stable Referrals: PRIMARY CARE, [Primary Care Provider] - 3-5 Days Time of Disposition: 17:39
[2018-01-21] MEDS ORDERED: NACL 0.9% 1000 ML 1,000 ML IV ONE (13:33)
--- NOTE | 2018-01-21 13:55 | Cat Scan Report ---
CTA CHEST INDICATION: Right-sided pleuritic chest pain. COMPARISON: None similar. FINDINGS: Chest CTA performed following intravenous administration of 100 cc of Omnipaque 350. Rotational MIP's also obtained. Normal heart size. No effusions or definite significant adenopathy. Patent central airway. No aortic aneurysm or dissection. Pulmonary arterial opacification though technically suboptimal. No large central pulmonary embolus though grossly suspected. Few small bilateral axillary lymph nodes, not size significant. Normal size thyroid with a subtle 6 mm hypodensity on the left questioned, axial image 10, series 2. Right middle lobe scarring. Otherwise unremarkable lungs. Nonspecific distal esophageal wall prominence/thickening, not excluded for gastroesophageal reflux and/or hiatal hernia, amongst others. Left hepatic lobe tip approaches the spleen in the left upper quadrant. Right hemidiaphragm approximately 5 cm higher than the left. As on axial series 2, images 95-123, approximately 7.4 cm hypodense right suprarenal fluid collection identified, wedged between the liver and kidney, predominantly simple fluid with attenuation of 9 HU, though few small hyperdense areas noted peripherally as on axial image 103, amongst others. Slight suprarenal fat stranding also noted as on axial images 116-121. Slight thoracic spine degenerative spurring. CONCLUSION: 1. Approximately 7.4 cm slightly complex cystic/hypodense right suprarenal fluid collection situated between the liver and the kidney, as detailed above with its exact organ of origin indeterminate on this exam alone. Differential considerations would include an infected/complex cyst or an old/resolving hematoma, amongst others. 2. Suboptimal CT opacification and assessment for pulmonary embolism with few other findings, as described. I phoned the above results to Dr. Guillen in the ER, 1:15 PM, 01/21/2018. Thank you for the opportunity to participate in this patient's care.
--- NOTE | 2018-01-21 14:10 | Cat Scan Report ---
CT ABDOMEN AND PELVIS WITHOUT CONTRAST INDICATION: Right flank pain. COMPARISON: Chest CT from earlier today. FINDINGS: Noncontrast abdomen and pelvis CT performed. LUNG BASES: Right middle lobe scarring. Nonspecific distal esophageal wall prominence/thickening, not excluded for gastroesophageal reflux and/or hiatal hernia, amongst others. Right hemidiaphragm approximately 6 cm higher than the left. ABDOMEN: Please note that sensitivity to detect small visceral lesions is limited due to the absence of intravenous or oral contrast. Similar to prior appearance, approximately 6.5 cm somewhat thick walled hypodense/cystic fluid collection with some peripheral soft tissue hyperdensities as on axial image 58 on series 2, amongst others. Left hepatic lobe tip again approaches the spleen in the left upper quadrant. Otherwise grossly unremarkable unenhanced liver, spleen, gallbladder, pancreas, nonhydronephrotic kidneys, aorta and IVC. No ascites or definite size significant adenopathy. Nonopacified GI tract evaluation limited, though grossly nonobstructive. Normal appendix. Usual colonic stool. Small fat containing umbilical hernia with a transverse neck of approximately 1 cm, axial image 106 and/or a small paraumbilical hernia containing fat and minimal fluid more inferiorly as on axial image 112. PELVIS: Approximately 2.7 cm peripherally calcified anterior fundal fibroid. Iatrogenic contrast excretion. Grossly unremarkable adnexa and the rectosigmoid. No free fluid or significant adenopathy. Mild bilateral SI joint degenerative changes/iliac aspect sclerosis. CONCLUSION: 1. Approximately 6.5 cm somewhat thickwalled right suprarenal hypodense collection with its exact organ of origin indeterminate as to liver, right kidney or retroperitoneal. Differential considerations again include an infected/complex cyst or a resolving hematoma, amongst others. 2. Few other incidental findings, including elevated right hemidiaphragm, distal esophageal thickening, small umbilical hernia and a calcified fibroid, amongst others, as above. Thank you for the opportunity to participate in this patient's care.
[2018-01-21 15:21] LABS: INR 0.95 (0.87-1.13)
[2018-01-21 15:22] LABS: Partial Thromboplastin Time 31.7 Sec. (24.2-36.6)
[2018-01-21 15:34] LABS: Alanine Aminotransferase 16 units/L (7-56); Lipase 65 units/L (13-60)
[2018-01-21 15:35] LABS: Bilirubin,Direct < 0.2 mg/dL (0-0.2)
--- NOTE | 2018-01-21 21:48 | History and Physical Report ---
History of Present Illness Date of examination: 01/21/18 Date of admission: 01/21/18 17:39 Chief complaint: CC R chest pain and Rt Flank pain since yesterday History of present illness: History of Present Illness: Patient comes in for acute onset of right posterior chest pain and right flank pain since yesterday afternoon. She stated that the pain felt worse if she moved or take a deep breath. She did not feel specifically short of breath and she denied cough. She states that she has never had a pain like this before. She did not report radiation of the pain to me. She denied nausea or vomiting and any sort of symptoms. She has had no recent travel. She denied leg pain or swelling. She has no family history of VTE.Pain is 7/10.No exacerbating or relieving factors. Past Medical History Previous Medical History?: Yes Hx Asthma: Yes Additional medical history: bronchitis, MOLES. Neurofibromatosis Surgical History Past Surgical History?: Yes Additional Surgical History: MOLES REMOVED FROM BACK OF HEAD Social History Smoking Status: Former Smoker Substance Use Type: Alcohol Medications Home Medications: Home Medications Medication Instructions Recorded Confirmed Last Taken Type No Known Home Medications [No 01/21/18 01/21/18 Unknown History Reported Home Medications] Review of Systems ROS: Stated complaint: CHEST/SHOULDER PAIN Other details as noted in HPI Constitutional: denies: chills, fever Eyes: denies: eye pain, eye discharge, vision change ENT: denies: ear pain, throat pain Respiratory: denies: cough, shortness of breath, wheezing Cardiovascular: as per HPI, chest pain. denies: palpitations Endocrine: no symptoms reported Gastrointestinal: denies: abdominal pain, nausea, diarrhea Genitourinary: denies: urgency, dysuria, discharge Musculoskeletal: denies: back pain, joint swelling, arthralgia Skin: denies: rash, lesions Neurological: denies: headache, weakness, paresthesias Psychiatric: denies: anxiety, depression Hematological/Lymphatic: denies: easy bleeding, easy bruising 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 Medications and Allergies Allergies Allergy/AdvReac Type Severity Reaction Status Date / Time No Known Allergies Allergy Verified 04/04/17 09:06 Home Medications Medication Instructions Recorded Confirmed Last Taken Type No Known Home Medications [No 01/21/18 01/21/18 Unknown History Reported Home Medications] Exam - Constitutional Vitals: Temp Pulse Resp BP Pulse Ox 98.3 F 98 H 14 95/70 99 01/21/18 09:33 01/21/18 20:40 01/21/18 20:40 01/21/18 20:40 01/21/18 20:40 General appearance: Present: mild distress, well-nourished - EENT Eyes: Present: PERRL ENT: hearing intact, clear oral mucosa - Neck Neck: Present: supple, normal ROM - Respiratory Respiratory effort: normal Respiratory: bilateral: CTA - Cardiovascular Heart rate: 78 Rhythm: regular Heart Sounds: Present: S1 & S2. Absent: rub, click - Extremities Extremities: no ischemia, pulses intact, pulses symmetrical, No edema Peripheral Pulses: within normal limits - Abdominal General gastrointestinal: Present: soft, non-tender, non-distended, normal bowel sounds Female genitourinary: Present: normal - Rectal Rectal Exam: deferred - Integumentary Integumentary: Present: clear, warm, dry - Musculoskeletal Musculoskeletal: gait normal, strength equal bilaterally - Psychiatric Psychiatric: appropriate mood/affect, intact judgment & insight - Neurologic Neurologic: CNII-XII intact, moves all extremities - Allied Health Allied health notes reviewed: nursing, case management Results - Labs CBC & Chem 7: 01/21/18 09:44 01/21/18 09:44 Labs: Laboratory Last Values WBC 8.6 K/mm3 (4.5-11.0) 01/21/18 09:44 RBC 4.67 M/mm3 (3.65-5.03) 01/21/18 09:44 Hgb 9.8 gm/dl (10.1-14.3) L 01/21/18 09:44 Hct 33.1 % (30.3-42.9) 01/21/18 09:44 MCV 71 fl (79-97) L 01/21/18 09:44 MCH 21 pg (28-32) L 01/21/18 09:44 MCHC 30 % (30-34) 01/21/18 09:44 RDW 18.0 % (13.2-15.2) H 01/21/18 09:44 Plt Count 377 K/mm3 (140-440) 01/21/18 09:44 Lymph % (Auto) 18.8 % (13.4-35.0) 01/21/18 09:44 [place] % (Auto) 10.7 % (0.0-7.3) H 01/21/18 09:44 Eos % (Auto) 5.7 % (0.0-4.3) H 01/21/18 09:44 Baso % (Auto) 1.8 % (0.0-1.8) 01/21/18 09:44 Lymph # 1.6 K/mm3 (1.2-5.4) 01/21/18 09:44 [place] # 0.9 K/mm3 (0.0-0.8) H 01/21/18 09:44 Eos # 0.5 K/mm3 (0.0-0.4) H 01/21/18 09:44 Baso # 0.2 K/mm3 (0.0-0.1) H 01/21/18 09:44 Seg Neutrophils % 63.0 % (40.0-70.0) 01/21/18 09:44 Seg Neutrophils # 5.5 K/mm3 (1.8-7.7) 01/21/18 09:44 PT 13.1 Sec. (12.2-14.9) 01/21/18 14:52 INR 0.95 (0.87-1.13) 01/21/18 14:52 APTT 31.7 Sec. (24.2-36.6) 01/21/18 14:52 Sodium 139 mmol/L (137-145) 01/21/18 09:44 Potassium 4.8 mmol/L (3.6-5.0) 01/21/18 09:44 Chloride 103.3 mmol/L (98-107) 01/21/18 09:44 Carbon Dioxide 27 mmol/L (22-30) 01/21/18 09:44 Anion Gap 14 mmol/L 01/21/18 09:44 BUN 8 mg/dL (7-17) 01/21/18 09:44 Creatinine 0.6 mg/dL (0.7-1.2) L 01/21/18 09:44 Estimated GFR > 60 ml/min 01/21/18 09:44 BUN/Creatinine Ratio 13 % 01/21/18 09:44 Glucose 126 mg/dL (65-100) H 01/21/18 09:44 Lactic Acid 1.10 mmol/L (0.7-2.0) 01/21/18 14:52 Calcium 10.9 mg/dL (8.4-10.2) H 01/21/18 09:44 Magnesium 1.90 mg/dL (1.7-2.3) 01/21/18 14:52 Total Bilirubin < 0.20 mg/dL (0.1-1.2) 01/21/18 14:52 Direct Bilirubin < 0.2 mg/dL (0-0.2) 01/21/18 14:52 Indirect Bilirubin 0.0 mg/dL 01/21/18 14:52 AST 17 units/L (5-40) 01/21/18 14:52 ALT 16 units/L (7-56) 01/21/18 14:52 Alkaline Phosphatase 122 units/L (35-129) 01/21/18 14:52 Troponin T < 0.010 ng/mL (0.00-0.029) 01/21/18 09:44 NT-Pro-B Natriuret Pep 25.67 pg/mL (0-450) 01/21/18 14:52 Total Protein 6.3 g/dL (6.3-8.2) 01/21/18 14:52 Albumin 3.0 g/dL (3.9-5) L 01/21/18 14:52 Albumin/Globulin Ratio 0.9 % 01/21/18 14:52 Lipase 65 units/L (13-60) H 01/21/18 14:52 HCG, Qual Negative (Negative) 01/21/18 14:52 Blood Type B POSITIVE 01/21/18 14:52 Antibody Screen Negative 01/21/18 14:52 Short CBC 01/21/18 Range/Units 09:44 WBC 8.6 (4.5-11.0) K/mm3 Hgb 9.8 L (10.1-14.3) gm/dl Hct 33.1 (30.3-42.9) % Plt Count 377 (140-440) K/mm3 BMP 01/21/18 09:44 Sodium 139 Potassium 4.8 Chloride 103.3 Carbon Dioxide 27 BUN 8 Creatinine 0.6 L Glucose 126 H Calcium 10.9 H Cardiac Enzymes 01/21/18 Range/Units 09:44 Troponin T < 0.010 (0.00-0.029) ng/mL Liver Function 01/21/18 Range/Units 14:52 Total Bilirubin < 0.20 (0.1-1.2) mg/dL Direct Bilirubin < 0.2 (0-0.2) mg/dL AST 17 (5-40) units/L ALT 16 (7-56) units/L Alkaline Phosphatase 122 (35-129) units/L Albumin 3.0 L (3.9-5) g/dL Urine 01/22/18 Range/Units 02:12 Urine Color Yellow (Yellow) Urine pH 7.0 (5.0-7.0) Ur Specific [place] 1.016 (1.003-1.030) Urine Protein <15 mg/dl (Negative) mg/dL Urine Glucose (UA) Neg (Negative) mg/dL - Imaging and Cardiology Imaging and Cardiology: CT Abdomen CONCLUSION: 1. Approximately 6.5 cm somewhat thickwalled right suprarenal hypodense collection with its exact organ of origin indeterminate as to liver, right kidney or retroperitoneal. Differential considerations again include an infected/complex cyst or a resolving hematoma, amongst others. 2. Few other incidental findings, including elevated right hemidiaphragm, distal esophageal thickening, small umbilical hernia and a calcified fibroid, amongst others, as above. Assessment and Plan Advance Directives: Yes (Full code) VTE prophylaxis?: Chemical Plan of care discussed with patient/family: Yes - Patient Problems (1) Retroperitoneal hematoma Current Visit: Yes Status: Acute Plan to address problem: A High possibility Observation and serial CT abdomens as outpatient (2) Subphrenic fluid collection Current Visit: Yes Status: Acute Plan to address problem: Possible Hematoma Will get opinion from Surgery also Probably observation and f/u as outpatient Pain control (3) DVT prophylaxis Current Visit: No Status: Acute Plan to address problem: SCD's only in view of Hematoma
[2018-01-21] MEDS ORDERED: TYLENOL PO PRN (21:50)
[2018-01-21] MEDS ORDERED: ZOFRAN IV PRN (21:50)
[2018-01-21] MEDS ORDERED: cefTRIAXone 2 GM in NACL 0.9% 20 ML IV SCH (22:00)
[2018-01-21] MEDS: PEPCID IV SCH (22:53)
[2018-01-21] MEDS: SODIUM CHLORIDE FLUSH SYRINGE 10 ML IV PRN ×2 (22:53→23:19)
[2018-01-21] MEDS: MORPHINE IV PRN (22:53)
[2018-01-21] MEDS: SODIUM CHLORIDE FLUSH SYRINGE 10 ML IV SCH (22:53)
[2018-01-21] MEDS: NACL 0.9% 1000 ML 1,000 ML IV SCH (22:55)
[2018-01-22 02:34] LABS: Bilirubin,Urine NEG (Negative); Blood,Urine NEG (Negative); Color,Urine Yellow (Yellow); Protein,Urine <15 mg/dL mg/dL (Negative); Urobilinogen,Urine < 2.0 mg/dL (<2.0)
[2018-01-22] MEDS: PERCOCET 5/325 PO PRN (05:09)
[2018-01-22] MEDS: NACL 0.9% 1000 ML 1,000 ML IV SCH ×2 (07:18→23:10)
[2018-01-22 10:45] LABS: Basophils # (Auto) 0.1 K/mm3 (0.0-0.1); Basophils % (Auto) 1.3 % (0.0-1.8); Eosinophils # (Auto) 0.6 K/mm3 (0.0-0.4); Eosinophils % (Auto) 6.9 % (0.0-4.3); Hemoglobin 9.7 gm/dl (10.1-14.3); Lymphocytes # (Auto) 1.6 K/mm3 (1.2-5.4); Lymphocytes % (Auto) 17.1 % (13.4-35.0); Mean Corpuscular HGB Conc 29 % (30-34); Mean Corpuscular Hemoglobin 21 pg (28-32); Mean Corpuscular Volume 71 fl (79-97); Monocytes # (Auto) 0.9 K/mm3 (0.0-0.8); Monocytes % (Auto) 9.3 % (0.0-7.3); Platelet Count 393 K/mm3 (140-440); Red Blood Count 4.69 M/mm3 (3.65-5.03); Red Cell Distribution Width 17.8 % (13.2-15.2)
[2018-01-22] MEDS: PEPCID IV SCH ×2 (10:50→22:52)
[2018-01-22] MEDS: SODIUM CHLORIDE FLUSH SYRINGE 10 ML IV SCH ×2 (10:51→22:52)
[2018-01-22 10:56] LABS: Alanine Aminotransferase 16 units/L (7-56); BUN/Creatinine Ratio 12; Blood Urea Nitrogen 7 mg/dL (7-17); Calcium 10.1 mg/dL (8.4-10.2); Hemolysis Index 26
--- NOTE | 2018-01-22 13:16 | Progress Note ---
Assessment and Plan Assessment and plan: Patient comes in for acute onset of right posterior chest pain and right flank pain since yesterday afternoon. She stated that the pain felt worse if she moved or take a deep breath. She did not feel specifically short of breath and she denied cough. She states that she has never had a pain like this before. She did not report radiation of the pain to me. She denied nausea or vomiting and any sort of symptoms. She has had no recent travel. She denied leg pain or swelling. She has no family history of VTE.Pain is 7/10.No exacerbating or relieving factors. CT Abdomen CONCLUSION: 1. Approximately 6.5 cm somewhat thickwalled right suprarenal hypodense collection with its exact organ of origin indeterminate as to liver, right kidney or retroperitoneal. Differential considerations again include an infected/complex cyst or a resolving hematoma, amongst others. 2. Few other incidental findings, including elevated right hemidiaphragm, distal esophageal thickening, small umbilical hernia and a calcified fibroid, amongst others, as above. cta chest neg for pe (1) Retroperitoneal hematoma? vs mass obtain renal us and MR abdomen (2) Subphrenic fluid collection Current Visit: Yes Status: Acute Plan to address problem: Possible Hematoma Will get opinion from Surgery also (3) chest pain awaiting stress test DVT prophylaxis SCD's only in view of Hematoma History Interval history: right chest pain is improved left flank pain is improved no nausea, no mejia, no fever Hospitalist Physical - Constitutional Vitals: Temp Pulse Resp BP Pulse Ox 98.1 F 76 20 121/81 99 01/22/18 07:45 01/22/18 07:45 01/22/18 07:45 01/22/18 07:45 01/22/18 07:45 General appearance: Present: mild distress, well-nourished - EENT Eyes: Present: PERRL ENT: hearing intact - Neck Neck: Present: supple - Respiratory Respiratory effort: normal Respiratory: bilateral: CTA - Cardiovascular Rhythm: regular Heart Sounds: Present: S1 & S2 - Extremities Extremities: no ischemia Peripheral Pulses: within normal limits - Abdominal General gastrointestinal: soft, non-tender - Integumentary Integumentary: Present: clear, warm, dry - Psychiatric Psychiatric: appropriate mood/affect, intact judgment & insight - Neurologic Neurologic: CNII-XII intact, moves all extremities Results - Labs CBC & Chem 7: 01/22/18 06:41 01/22/18 06:41 Labs: Laboratory Last Values WBC 9.2 K/mm3 (4.5-11.0) 01/22/18 06:41 RBC 4.69 M/mm3 (3.65-5.03) 01/22/18 06:41 Hgb 9.7 gm/dl (10.1-14.3) L 01/22/18 06:41 Hct 33.0 % (30.3-42.9) 01/22/18 06:41 MCV 71 fl (79-97) L 01/22/18 06:41 MCH 21 pg (28-32) L 01/22/18 06:41 MCHC 29 % (30-34) L 01/22/18 06:41 RDW 17.8 % (13.2-15.2) H 01/22/18 06:41 Plt Count 393 K/mm3 (140-440) 01/22/18 06:41 Lymph % (Auto) 17.1 % (13.4-35.0) 01/22/18 06:41 [place] % (Auto) 9.3 % (0.0-7.3) H 01/22/18 06:41 Eos % (Auto) 6.9 % (0.0-4.3) H 01/22/18 06:41 Baso % (Auto) 1.3 % (0.0-1.8) 01/22/18 06:41 Lymph # 1.6 K/mm3 (1.2-5.4) 01/22/18 06:41 [place] # 0.9 K/mm3 (0.0-0.8) H 01/22/18 06:41 Eos # 0.6 K/mm3 (0.0-0.4) H 01/22/18 06:41 Baso # 0.1 K/mm3 (0.0-0.1) 01/22/18 06:41 Seg Neutrophils % 65.4 % (40.0-70.0) 01/22/18 06:41 Seg Neutrophils # 6.0 K/mm3 (1.8-7.7) 01/22/18 06:41 PT 13.1 Sec. (12.2-14.9) 01/21/18 14:52 INR 0.95 (0.87-1.13) 01/21/18 14:52 APTT 31.7 Sec. (24.2-36.6) 01/21/18 14:52 Sodium 139 mmol/L (137-145) 01/22/18 06:41 Potassium 4.7 mmol/L (3.6-5.0) 01/22/18 06:41 Chloride 104.3 mmol/L (98-107) 01/22/18 06:41 Carbon Dioxide 26 mmol/L (22-30) 01/22/18 06:41 Anion Gap 13 mmol/L 01/22/18 06:41 BUN 7 mg/dL (7-17) 01/22/18 06:41 Creatinine 0.6 mg/dL (0.7-1.2) L 01/22/18 06:41 Estimated GFR > 60 ml/min 01/22/18 06:41 BUN/Creatinine Ratio 12 % 01/22/18 06:41 Glucose 77 mg/dL (65-100) 01/22/18 06:41 Hemoglobin A1c 5.5 % (4-6) 01/21/18 22:03 Lactic Acid 1.10 mmol/L (0.7-2.0) 01/21/18 14:52 Calcium 10.1 mg/dL (8.4-10.2) 01/22/18 06:41 Magnesium 1.90 mg/dL (1.7-2.3) 01/21/18 14:52 Total Bilirubin < 0.20 mg/dL (0.1-1.2) 01/22/18 06:41 Direct Bilirubin < 0.2 mg/dL (0-0.2) 01/21/18 14:52 Indirect Bilirubin 0.0 mg/dL 01/21/18 14:52 AST 20 units/L (5-40) 01/22/18 06:41 ALT 16 units/L (7-56) 01/22/18 06:41 Alkaline Phosphatase 95 units/L (35-129) 01/22/18 06:41 Troponin T < 0.010 ng/mL (0.00-0.029) 01/21/18 09:44 NT-Pro-B Natriuret Pep 25.67 pg/mL (0-450) 01/21/18 14:52 Total Protein 6.2 g/dL (6.3-8.2) L 01/22/18 06:41 Albumin 3.0 g/dL (3.9-5) L 01/22/18 06:41 Albumin/Globulin Ratio 0.9 % 01/22/18 06:41 Lipase 65 units/L (13-60) H 01/21/18 14:52 HCG, Qual Negative (Negative) 01/21/18 14:52 Urine Color Yellow (Yellow) 01/22/18 02:12 Urine Turbidity Clear (Clear) 01/22/18 02:12 Urine pH 7.0 (5.0-7.0) 01/22/18 02:12 Ur Specific [place] 1.016 (1.003-1.030) 01/22/18 02:12 Urine Protein <15 mg/dl mg/dL (Negative) 01/22/18 02:12 Urine Glucose (UA) Neg mg/dL (Negative) 01/22/18 02:12 Urine Ketones Neg mg/dL (Negative) 01/22/18 02:12 Urine Blood Neg (Negative) 01/22/18 02:12 Urine Nitrite Neg (Negative) 01/22/18 02:12 Urine Bilirubin Neg (Negative) 01/22/18 02:12 Urine Urobilinogen < 2.0 mg/dL (<2.0) 01/22/18 02:12 Ur Leukocyte Esterase Neg (Negative) 01/22/18 02:12 Urine WBC (Auto) 3.0 /HPF (0.0-6.0) 01/22/18 02:12 Urine RBC (Auto) 3.0 /HPF (0.0-6.0) 01/22/18 02:12 U Epithel Cells (Auto) 1.0 /HPF (0-13.0) 01/22/18 02:12 Blood Type B POSITIVE 01/21/18 14:52 Antibody Screen Negative 01/21/18 14:52
--- NOTE | 2018-01-22 15:29 | Ultrasound Report ---
FINAL REPORT EXAM: US RENAL BILAT HISTORY: right renal mass, flank pain TECHNIQUE: Ultrasound of the kidneys PRIORS: CT a/P 01/21/2018 FINDINGS: Examination of the kidneys demonstrates both to be normal in size and have normal cortical echogenicity and thickness. The right and left kidneys measure 10.0 cm and 12.0 cm in craniocaudal length, respectively. No evidence for calculi, hydronephrosis, or solid mass is seen in either kidney. The urinary bladder shows no intraluminal abnormality or wall thickening. However, in the right upper quadrant, there is a complex focus located between the liver and the right kidney measuring 6.8 x 5.8 x 6.7 cm. This has an internal cystic component, probably due to internal necrosis measuring 3.9 x 3.5 x 4.7 cm. This corresponds to the hypodense focus seen on recent CT. It appears separate from although adjacent to the upper pole right kidney. IMPRESSION: 1. negative ultrasound of the kidneys. 2. Abnormal complex cystic mass in the right suprarenal region. Findings correspond to the hypodense focus seen on recent CT.
[2018-01-22] MEDS: MORPHINE IV PRN (22:53)
--- NOTE | 2018-01-23 12:03 | Progress Note ---
Assessment and Plan Assessment and plan: Patient comes in for acute onset of right posterior chest pain and right flank pain since yesterday afternoon. She stated that the pain felt worse if she moved or take a deep breath. She did not feel specifically short of breath and she denied cough. She states that she has never had a pain like this before. She did not report radiation of the pain to me. She denied nausea or vomiting and any sort of symptoms. She has had no recent travel. She denied leg pain or swelling. She has no family history of VTE.Pain is 7/10.No exacerbating or relieving factors. CT Abdomen CONCLUSION: 1. Approximately 6.5 cm somewhat thickwalled right suprarenal hypodense collection with its exact organ of origin indeterminate as to liver, right kidney or retroperitoneal. Differential considerations again include an infected/complex cyst or a resolving hematoma, amongst others. 2. Few other incidental findings, including elevated right hemidiaphragm, distal esophageal thickening, small umbilical hernia and a calcified fibroid, amongst others, as above. cta chest neg for pe (1) Retroperitoneal hematoma? vs mass fup MR abdomen (2) Subphrenic fluid collection Current Visit: Yes Status: Acute Plan to address problem: Possible Hematoma Will get opinion from Surgery also (3) chest pain awaiting stress test DVT prophylaxis SCD's only in view of Hematoma History Interval history: right chest pain is improved left flank pain is improved no nausea, no mejia, no fever Hospitalist Physical - Physical exam Narrative exam: General appearance: Present: mild distress, well-nourished - EENT Eyes: Present: PERRL ENT: hearing intact - Neck Neck: Present: supple - Respiratory Respiratory effort: normal Respiratory: bilateral: CTA - Cardiovascular Rhythm: regular Heart Sounds: Present: S1 & S2 - Extremities Extremities: no ischemia Peripheral Pulses: within normal limits - Abdominal General gastrointestinal: soft, non-tender - Integumentary Integumentary: Present: clear, warm, dry - Psychiatric Psychiatric: appropriate mood/affect, intact judgment & insight - Neurologic Neurologic: CNII-XII intact, moves all extremities - Constitutional Vitals: Temp Pulse Resp BP Pulse Ox 97.8 F 83 20 129/83 100 01/23/18 07:30 01/23/18 07:30 01/23/18 07:30 01/23/18 07:30 01/23/18 07:30 General appearance: Present: mild distress, well-nourished Results - Labs CBC & Chem 7: 01/22/18 06:41 01/22/18 06:41 Labs: Laboratory Last Values WBC 9.2 K/mm3 (4.5-11.0) 01/22/18 06:41 RBC 4.69 M/mm3 (3.65-5.03) 01/22/18 06:41 Hgb 9.7 gm/dl (10.1-14.3) L 01/22/18 06:41 Hct 33.0 % (30.3-42.9) 01/22/18 06:41 MCV 71 fl (79-97) L 01/22/18 06:41 MCH 21 pg (28-32) L 01/22/18 06:41 MCHC 29 % (30-34) L 01/22/18 06:41 RDW 17.8 % (13.2-15.2) H 01/22/18 06:41 Plt Count 393 K/mm3 (140-440) 01/22/18 06:41 Lymph % (Auto) 17.1 % (13.4-35.0) 01/22/18 06:41 [place] % (Auto) 9.3 % (0.0-7.3) H 01/22/18 06:41 Eos % (Auto) 6.9 % (0.0-4.3) H 01/22/18 06:41 Baso % (Auto) 1.3 % (0.0-1.8) 01/22/18 06:41 Lymph # 1.6 K/mm3 (1.2-5.4) 01/22/18 06:41 Real # 0.9 K/mm3 (0.0-0.8) H 01/22/18 06:41 Eos # 0.6 K/mm3 (0.0-0.4) H 01/22/18 06:41 Baso # 0.1 K/mm3 (0.0-0.1) 01/22/18 06:41 Seg Neutrophils % 65.4 % (40.0-70.0) 01/22/18 06:41 Seg Neutrophils # 6.0 K/mm3 (1.8-7.7) 01/22/18 06:41 PT 13.1 Sec. (12.2-14.9) 01/21/18 14:52 INR 0.95 (0.87-1.13) 01/21/18 14:52 APTT 31.7 Sec. (24.2-36.6) 01/21/18 14:52 Sodium 139 mmol/L (137-145) 01/22/18 06:41 Potassium 4.7 mmol/L (3.6-5.0) 01/22/18 06:41 Chloride 104.3 mmol/L (98-107) 01/22/18 06:41 Carbon Dioxide 26 mmol/L (22-30) 01/22/18 06:41 Anion Gap 13 mmol/L 01/22/18 06:41 BUN 7 mg/dL (7-17) 01/22/18 06:41 Creatinine 0.6 mg/dL (0.7-1.2) L 01/22/18 06:41 Estimated GFR > 60 ml/min 01/22/18 06:41 BUN/Creatinine Ratio 12 % 01/22/18 06:41 Glucose 77 mg/dL (65-100) 01/22/18 06:41 Hemoglobin A1c 5.5 % (4-6) 01/21/18 22:03 Lactic Acid 1.10 mmol/L (0.7-2.0) 01/21/18 14:52 Calcium 10.1 mg/dL (8.4-10.2) 01/22/18 06:41 Magnesium 1.90 mg/dL (1.7-2.3) 01/21/18 14:52 Total Bilirubin < 0.20 mg/dL (0.1-1.2) 01/22/18 06:41 Direct Bilirubin < 0.2 mg/dL (0-0.2) 01/21/18 14:52 Indirect Bilirubin 0.0 mg/dL 01/21/18 14:52 AST 20 units/L (5-40) 01/22/18 06:41 ALT 16 units/L (7-56) 01/22/18 06:41 Alkaline Phosphatase 95 units/L (35-129) 01/22/18 06:41 Troponin T < 0.010 ng/mL (0.00-0.029) 01/21/18 09:44 NT-Pro-B Natriuret Pep 25.67 pg/mL (0-450) 01/21/18 14:52 Total Protein 6.2 g/dL (6.3-8.2) L 01/22/18 06:41 Albumin 3.0 g/dL (3.9-5) L 01/22/18 06:41 Albumin/Globulin Ratio 0.9 % 01/22/18 06:41 Lipase 65 units/L (13-60) H 01/21/18 14:52 HCG, Qual Negative (Negative) 01/21/18 14:52 Urine Color Yellow (Yellow) 01/22/18 02:12 Urine Turbidity Clear (Clear) 01/22/18 02:12 Urine pH 7.0 (5.0-7.0) 01/22/18 02:12 Ur Specific [place] 1.016 (1.003-1.030) 01/22/18 02:12 Urine Protein <15 mg/dl mg/dL (Negative) 01/22/18 02:12 Urine Glucose (UA) Neg mg/dL (Negative) 01/22/18 02:12 Urine Ketones Neg mg/dL (Negative) 01/22/18 02:12 Urine Blood Neg (Negative) 01/22/18 02:12 Urine Nitrite Neg (Negative) 01/22/18 02:12 Urine Bilirubin Neg (Negative) 01/22/18 02:12 Urine Urobilinogen < 2.0 mg/dL (<2.0) 01/22/18 02:12 Ur Leukocyte Esterase Neg (Negative) 01/22/18 02:12 Urine WBC (Auto) 3.0 /HPF (0.0-6.0) 01/22/18 02:12 Urine RBC (Auto) 3.0 /HPF (0.0-6.0) 01/22/18 02:12 U Epithel Cells (Auto) 1.0 /HPF (0-13.0) 01/22/18 02:12 Blood Type B POSITIVE 01/21/18 14:52 Antibody Screen Negative 01/21/18 14:52
[2018-01-23] MEDS: MORPHINE IV PRN ×2 (12:47→21:24)
[2018-01-23] MEDS: PEPCID IV SCH ×2 (12:47→21:24)
[2018-01-23] MEDS: SODIUM CHLORIDE FLUSH SYRINGE 10 ML IV SCH ×2 (12:47→21:26)
--- NOTE | 2018-01-23 16:51 | Magnetic Resonance Report ---
FINAL REPORT EXAM: MR ABDOMEN WO/W CON HISTORY: right renal mass TECHNIQUE: MRI of the abdomen with and without intravenous contrast PRIORS: Correlated with prior CT of January 21, 2018 and ultrasound of January 22, 2018 FINDINGS: There is a large mass within the right upper quadrant measuring 5.2 x 6.4 x 7.8 centimeters. The mass is located just superior to the right kidney and there appears to be distinct margin between renal cortex in the mass. It borders on and may be partially invading the right lobe of the liver. On precontrast T2 weighted images there is mixed signal intensity largely bright on T2 and decreased signal on T1 weighted sequences. No definitive fat content identified. On postcontrast imaging there are irregular within enhancing margins with no central fill in on delayed imaging. There is some nodularity present along the inner margins of the mass. Remainder of the liver is unremarkable. The left adrenal gland is identified and is unremarkable Kidneys enhance normally normal signal is seen within the IVC and hepatic veins as well as the portal vein. Spleen is normal in size and attenuation. No evidence for ascites in the upper abdomen. IMPRESSION: Necrotic mass within the right upper quadrant which appears most likely adrenal in origin. 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
--- NOTE | 2018-01-23 17:44 | Consultation ---
History of Present Illness Consult date: 01/23/18 Reason for consult: other (retroperitoneal mass) Requesting physician: SHWETHA PERRY Chief complaint: back, chest, and shoulder pain - History of present illness History of present illness: 37-year-old female presented with acute onset of right chest, shoulders, back pain. This began last Tuesday. Denies any recent trauma. Denies any fevers, chills, nausea, vomiting. Denies any unexpected weight loss. CT evaluation revealed a mass in the right retroperitoneum. General surgery was asked to evaluate. 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, other (neurofibromatosis) Past Surgical History: No surgical history Social history: denies: smoking, alcohol abuse, prescription drug abuse Family history: no significant family history Medications and Allergies Allergies Allergy/AdvReac Type Severity Reaction Status Date / Time No Known Allergies Allergy Verified 04/04/17 09:06 Home Medications Medication Instructions Recorded Confirmed Last Taken Type No Known Home Medications [No 01/21/18 01/21/18 Unknown History Reported Home Medications] Active Meds: Active Medications Acetaminophen (Tylenol) 650 mg PO Q4H PRN PRN Reason: Pain MILD(1-3)/Fever >100.5/ZENDEJAS Famotidine (Pepcid) 20 mg IV BID [facility] Last Admin: 01/23/18 12:47 Dose: 20 mg Sodium Chloride (Nacl 0.9% 1000 Ml) 1,000 mls @ 75 mls/hr IV DIRECT VINI Last Admin: 01/22/18 23:10 Dose: 75 mls/hr Morphine Sulfate (Morphine) 2 mg IV Q4H PRN PRN Reason: Pain, Moderate (4-6) Last Admin: 01/23/18 12:47 Dose: 2 mg Ondansetron HCl (Zofran) 4 mg IV Q8H PRN PRN Reason: Nausea And Vomiting Last Admin: 01/22/18 22:54 Dose: 4 mg Oxycodone/Acetaminophen (Percocet 5/325) 1 tab PO Q6H PRN PRN Reason: Pain, Moderate (4-6) Last Admin: 01/22/18 05:09 Dose: 1 tab Sodium Chloride (Sodium Chloride Flush Syringe 10 Ml) 10 ml IV BID [facility] Last Admin: 01/23/18 12:47 Dose: 10 ml Sodium Chloride (Sodium Chloride Flush Syringe 10 Ml) 10 ml IV PRN PRN PRN Reason: LINE FLUSH Last Admin: 01/21/18 23:19 Dose: 10 ml Review of Systems - Constitutional weight gain, no weight loss, no fever, no chills, no sweats, no night sweats, no fatigue, no lethargy, no chronic pain - Cardiovascular chest pain (on right side), no rapid/irregular heart beat - Respiratory pain on inspiration (on the right), no cough, no cough with sputum, no hemoptysis, no shortness of breath, no congestion - Gastrointestinal no abdominal pain, no nausea, no vomiting, no change in bowel habits, no hematemesis, no coffee ground emesis, no BRBPR, no melena, no hematochezia, no loss of appetite, no dyspepsia/bloating - Genitourinary Genitourinary: no dysuria, no hematuria - Muskuloskeletal other (right mid back pain) - Integumentary no rash, no pruritis Exam Vital Signs Temp Pulse Resp BP Pulse Ox 98.3 F 93 H 16 131/79 99 01/21/18 09:33 01/21/18 09:33 01/21/18 09:33 01/21/18 09:33 01/21/18 09:33 - General physical appearance Positive: no distress, no pain, other (appears healthy) - Eyes Positive: deviation (disconjugate gaze) - Respiratory Positive: normal expansion, normal respiratory effort, clear to auscultation - Cardiovascular Rhythm: regular - Extremities Extremities: normal temperature, normal color - Breasts Breasts: deferred - Abdomen Abdomen: Present: soft, bowel sounds normal. Absent: tender, distended, surgical scars - Integumentary no rash, no growths, no abnormal pigmentation - Neurologic Neurologic: alert and oriented to time, place and person, motor strength and sensation are grossly intact - Musculoskeletal other (no CVA tenderness) - Psychiatric Psychiatric: appropriate mood/affect, intact judgment & insight Results - Labs 01/22/18 06:41 01/22/18 06:41 - Imaging CT scan - abdomen: report reviewed, image reviewed Additional studies: Reviewed images and reports of MRI abdomen Assessment and Plan - Patient Problems (1) Retroperitoneal mass Current Visit: Yes Status: Acute Plan to address problem: Pt stable. History does not any clear indication as to what the etiology of the mass is. I reviewed the CT, ultrasound and MRI with Dr. Blackwell from radiology. I am very worried that this more than just a simple cyst. The size by itself is very concerning. I am worried that this is a tumor that had a spontaneous bleed within it. This would account for the appearance on the various radiographic studies. I think she would be best served by being evaluated by surgical oncologist as an outpatient. I've passed this recommendation onto the hospitalists. I'll explain this to the patient. Time=75min
[2018-01-24] MEDS: PERCOCET 5/325 PO PRN (08:25)
--- NOTE | 2018-01-24 09:02 | Progress Note ---
Assessment and Plan - Patient Problems (1) Retroperitoneal mass Current Visit: Yes Status: Acute Plan to address problem: Pt stable. History does not any clear indication as to what the etiology of the mass is. I reviewed the CT, ultrasound and MRI with Dr. Blackwell from radiology. I am very worried that this more than just a simple cyst. The size by itself is very concerning. I am worried that this is a tumor that had a spontaneous bleed within it. This would account for the appearance on the various radiographic studies. I think she would best be served by evaluation and management by a surgical oncologist. And she does not have insurance, I would recommend transfer to a facility that has surgical oncology capabilities. Please call if there any questions. Time=15min Subjective Date of service: 01/24/18 Patient Reports: Positive: no new complaints (continues to have pain in right chest and back), tolerating a regular diet, afebrile. Negative: nausea, vomiting Objective Vital Signs - 12hr 01/23/18 01/23/18 01/24/18 21:24 23:48 07:18 Temperature 97.6 F 98.4 F Pulse Rate 84 82 Respiratory 18 18 16 Rate Blood Pressure 121/87 139/83 O2 Sat by Pulse 99 98 Oximetry - General physical appearance no distress, no pain, other (sitting up in bed having breakfast) - Respiratory normal expansion, normal respiratory effort - Psychiatric oriented to time, oriented to person, oriented to place, speech is normal, memory intact - Labs 01/22/18 06:41 01/22/18 06:41
--- NOTE | 2018-01-24 10:25 | Hem/Onc Consultation ---
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, other (neurofibromatosis) Past Surgical History: No surgical history Social history: denies: smoking, alcohol abuse, prescription drug abuse Family history: no significant family history Medications and Allergies Allergies Allergy/AdvReac Type Severity Reaction Status Date / Time No Known Allergies Allergy Verified 04/04/17 09:06 Home Medications Medication Instructions Recorded Confirmed Last Taken Type No Known Home Medications [No 01/21/18 01/21/18 Unknown History Reported Home Medications] Active Meds: Active Medications Acetaminophen (Tylenol) 650 mg PO Q4H PRN PRN Reason: Pain MILD(1-3)/Fever >100.5/ZENDEJAS Famotidine (Pepcid) 20 mg IV BID [facility] Last Admin: 01/23/18 21:24 Dose: 20 mg Sodium Chloride (Nacl 0.9% 1000 Ml) 1,000 mls @ 75 mls/hr IV DIRECT [facility] Last Admin: 01/22/18 23:10 Dose: 75 mls/hr Morphine Sulfate (Morphine) 2 mg IV Q4H PRN PRN Reason: Pain, Moderate (4-6) Last Admin: 01/23/18 21:24 Dose: 2 mg Ondansetron HCl (Zofran) 4 mg IV Q8H PRN PRN Reason: Nausea And Vomiting Last Admin: 01/22/18 22:54 Dose: 4 mg Oxycodone/Acetaminophen (Percocet 5/325) 1 tab PO Q6H PRN PRN Reason: Pain, Moderate (4-6) Last Admin: 01/24/18 08:25 Dose: 1 tab Sodium Chloride (Sodium Chloride Flush Syringe 10 Ml) 10 ml IV BID [facility] Last Admin: 01/23/18 21:26 Dose: 10 ml Sodium Chloride (Sodium Chloride Flush Syringe 10 Ml) 10 ml IV PRN PRN PRN Reason: LINE FLUSH Last Admin: 01/21/18 23:19 Dose: 10 ml Exam - Constitutional Vitals: Last Vital Signs Temp 98.4 F 01/24/18 07:18 Pulse 82 01/24/18 07:18 Resp 16 01/24/18 07:18 BP 139/83 01/24/18 07:18 Pulse Ox 98 01/24/18 07:18
[2018-01-24] MEDS: SODIUM CHLORIDE FLUSH SYRINGE 10 ML IV SCH (10:48)
[2018-01-24] MEDS: PEPCID IV SCH (10:48)
--- NOTE | 2018-01-24 12:15 | Consultation ---
REASON FOR CONSULTATION: Retroperitoneal mass. HISTORY OF PRESENT ILLNESS: The patient is a 37-year-old female who presented to the hospital with a right-sided posterior chest pain. The patient states that there is no obvious cough or shortness of breath. During her hospital course, the patient underwent a CT angiogram, which showed that approximately 7.4 cm complex cystic hypodense right suprarenal fluid collection between the liver and the kidney. The patient also underwent a CT of the abdomen and pelvis, which did show again a 6.5 cm thick wall right suprarenal hypodense collection. The differential included infected complex cyst versus hematoma. The patient also underwent renal ultrasound and MRI of the abdomen. The renal ultrasound again showed no evidence of any abnormality in the kidney, but an abnormal complex cystic mass in the suprarenal area. The MRI of the abdomen showed a necrotic mass in the right upper quadrant, mostly adrenal in origin. The patient was seen by ____ who has suggested a Surgical Oncology evaluation and a possible transfer. The patient otherwise says that she has been otherwise healthy. No other previous history of malignancy. She has history of neurofibromatosis and a strong family history of neurofibromatosis. She does have heavy periods. SOCIAL HISTORY: She does not smoke or drink. PHYSICAL EXAMINATION: GENERAL: The patient is awake and oriented. HEENT: Unremarkable. CHEST: Clear. CARDIOVASCULAR: Regular rate and rhythm. ABDOMEN: Soft. EXTREMITIES: No clubbing, cyanosis, or edema. There is multiple neurofibromatosis all over skin. LABORATORY WORK: Pertinent labs, the patient's hemoglobin is 9.7, white count 9.2, MCV 71, platelets 393,000. ASSESSMENT: 1. Right suprarenal mass complex rule out malignancy. 2. Neurofibromatosis. 3. Microcytic anemia from heavy periods. PLAN: At this time, I will discuss with ____if possible. The patient should be evaluated by a surgical oncologist for this mass. In the meantime, also we will order anemia workup for her microcytic anemia. JOB# [id number] NAYAN/MAXINE
[2018-01-24 12:42] LABS: % Iron Saturation 7.2 %
--- NOTE | 2018-01-24 15:13 | Discharge Summary ---
Providers - Providers Date of Admission: 01/21/18 17:39 Date of discharge: 01/24/18 Attending physician: BREANNE HUMPHRIES 01/21/18 Consult to Case Management [CONS] Routine Services Needed at Discharge: Home Health Services Notified:: copy left for cm 01/22/18 15:30 Consult to Physician [CONS] Routine Comment: Consulting Provider: ELIZ RAIN Physician Instructions: Reason For Exam: ??Retroperitoneal hematoma 01/24/18 08:19 Consult to Physician [CONS] Routine Comment: Consulting Provider: MICHAEL HAJI Physician Instructions: Reason For Exam: necrotic renal mass Primary care physician: [employer] Hospitalization Condition: Stable Pertinent studies: CXR CTA chest Renal UD CT abdomen/pelvis MRI abdomen Myocardial stress test Hospital course: 37 y/o morbidly obese NONI came in for acute onset of right posterior chest pain and right flank pain for 2 days. She was admitted for further evaluation and management. Her CE monitored, CTA chest did not show PE, stress test was unremarkable for ischemia. Initial work up in the ER with CT abdomen/pelvis was concerning for retroperitoneal hematoma. She was further evaluated by MRI abdomen, Renal US, which revealed right kidney upperpole necrotic possible adrenal mass. GS and oncology consulted and recommended to be evaluated by surgical oncologist, which this hospital does not have. I discussed the case with surgical oncologist at [facility] via transfer line for possible transfer and they recommended to f/u at [facility]. The patient was provided information to f/u at [facility]. They verbalized understanding and was discharge with outpt follow up. Discharge diagnosis and management: /Retroperitoneal hematoma? vs mass MR abdomen showed necrotic mass at the upper quadrant of the right kidney, GS recommended oncology surgery evaluation Discussed with surgical oncologist Dr Mcmullen at [facility] and he recommended to f/ u at [facility] Patient and her family explained the plan of care and thery verbalized understanding and they will f/u at [facility] /Chest pain, likely referred pain from right retroperitoneal mass s/p stress test and CTA chest / DVT prophylaxis SCD's only in view of possible Hematoma Disposition: DC-01 TO HOME OR SELFCARE Time spent for discharge: 34 minutes Core Measure Documentation - Palliative Care Palliative Care/ Comfort Measures: Not Applicable - Core Measures Any of the following diagnoses?: none Exam - Constitutional Vitals: Temp Pulse Resp BP Pulse Ox 98.4 F 82 16 139/83 98 01/24/18 07:18 01/24/18 07:18 01/24/18 07:18 01/24/18 07:18 01/24/18 07:18 General appearance: Present: no acute distress, obese - EENT Eyes: Present: PERRL ENT: hearing intact, clear oral mucosa - Neck Neck: Present: supple, normal ROM - Respiratory Respiratory effort: normal Respiratory: bilateral: CTA - Cardiovascular Heart Sounds: Present: S1 & S2. Absent: rub, click - Extremities Extremities: pulses symmetrical, No edema Peripheral Pulses: within normal limits - Abdominal General gastrointestinal: Present: soft, normal bowel sounds, other (right flank tenderness) - Integumentary Integumentary: Present: warm, dry - Musculoskeletal Musculoskeletal: gait normal, strength equal bilaterally - Psychiatric Psychiatric: appropriate mood/affect, intact judgment & insight - Neurologic Neurologic: CNII-XII intact, moves all extremities Plan Activity: advance as tolerated Weight Bearing Status: Non-Weight Bearing Diet: regular Additional Instructions: f/u at [facility]. Follow up with: PRIMARY CARE, [Primary Care Provider] - 3-5 Days Prescriptions: Famotidine [Pepcid] 20 mg PO BID #60 tablet oxyCODONE /ACETAMINOPHEN [Percocet 5/325 mg] 1 tab PO Q6H PRN #30 tablet PRN Reason: Pain, Moderate (4-6)
[2018-01-24 15:30] VITALS: BP 122/77
--- NOTE | 2018-01-24 15:56 | Event Note ---
Date: 01/24/18 I was called by the charge nurse due to the family being upset about discharge. I spoke to the patient and sister by phone. I explained the reasons for discharge. I discussed the original plan was discharge and follow-up as an outpatient with a surgical oncologist. Once they mentioned that she had no insurance, then I brought up the idea of transfer. That was my mistake. She does not qualify for continued admission, therefore transfer is an appropriate. I explained that she needs to see a surgical oncologist. She may have to be admitted at another hospital in order to get the care that she needs because she has no insurance. I later dropped off printouts of other hospitals in the area. The sister was satisfied and understanding of my mistake. The patient was satisfied with explanation as well.
[2018-01-24] MEDS ORDERED: PEPCID PO SCH (22:00)
== END 2018-01-24 17:45 | disposition home health service (06) | DRG 698 ==
LOC: ED 09:16 → 3A 17:39
PROVIDERS: ADMIT Internal Medicine; ATTEND Internal Medicine
DX: N28.89 Other specified disorders of kidney and ureter (principal); K66.1 Hemoperitoneum; R18.8 Other ascites; J45.909 Unspecified asthma, uncomplicated; D50.0 Iron deficiency anemia secondary to blood loss (chronic); Z87.891 Personal history of nicotine dependence; Q85.00 Neurofibromatosis, unspecified
CPT/HCPCS: 36415; 71046; 71275; 74176; 74183; 76770; 78452; 80048; 80053; 80074; 81001; 82140; 82607; 82728; 82747; 83036; 83550; 83690; 83735; 83880; 84484; 84703; 85025; 85045; 85610; 85730; 86850; 86900; 86901; 87040; 93005; 93010; 93017; A9502; A9577; J0696; J2270; J2405; J7030; Q9967

== ENCOUNTER 2018-02-14 18:55 | Emergency (ER) | payer SELFPAY ==
--- NOTE | 2018-02-14 19:21 | Emergency Department Report ---
ED Asthma HPI - General Chief Complaint: Adult Asthma Stated Complaint: WIZZY Time Seen by Provider: 02/14/18 19:03 Source: patient, family Mode of arrival: Ambulatory Limitations: No Limitations - History of Present Illness Initial Comments: This is a 37-year-old Mom brought her son to the emergency room for asthma flareup but while she was here she said she started feeling like she has a flare up of asthma she says she has a history of bronchitis and asthma and took a treatment lasted 3 PM today and thought it was better but now she is wheezing and shortness of breath. Denies any nausea or vomiting. Denies any fever or chills. Pain is 0-10. Denies any chest pain. Patient was here on 01/21/2018 where she was admitted for right-sided chest pain. She had a stress test on and was workup. She had CT of the chest which showed no abnormalities. She did have some abnormality to her kidney and she was seen by paint grinder. Patient does says she gets short of breath when she walks and her shortness of breath is not different from usual. She has been worked up by cardiology 2017 MD Complaint: "asthma attack", shortness of breath, wheezing -: This evening Asthma History: adult onset Severity: similar to prior Context: recent URI Associated Symptoms: dry cough Treatments Prior to Arrival: inhaled bronchodilator - Related Data Current Asthma Therapy: inhaled bronchodilator Previous Rx's Medication Instructions Recorded Last Taken Type Famotidine [Pepcid] 20 mg PO BID #60 tablet 01/24/18 Unknown Rx oxyCODONE /ACETAMINOPHEN [Percocet 1 tab PO Q6H PRN #30 tablet 01/24/18 Unknown Rx 5/325 mg] ALBUTEROL Inhaler [Proair] 2 puff IH QID PRN #1 inhalation 02/14/18 Unknown Rx ALBUTEROL NEB's [Proventil 0.083% 2.5 mg IH Q6H PRN #1 pkg 02/14/18 Unknown Rx NEBS] Cetirizine HCl [ZyrTEC] 10 mg PO QDAY 14 Days #14 capsule 02/14/18 Unknown Rx Fluticasone [Flonase] 1 spray NS QDAY 14 Days #1 bottle 02/14/18 Unknown Rx methylPREDNISolone [Medrol] 4 mg PO QDAY 6 Days #1 tab.ds.pk 02/14/18 Unknown Rx Allergies Allergy/AdvReac Type Severity Reaction Status Date / Time No Known Allergies Allergy Verified 04/04/17 09:06 ED Review of Systems ROS: Stated complaint: WIZZY Other details as noted in HPI Constitutional: denies: chills, fever Eyes: denies: eye pain, eye discharge, vision change ENT: congestion. denies: ear pain, throat pain Respiratory: cough, shortness of breath, SOB with exertion, wheezing. denies: SOB at rest, stridor Cardiovascular: denies: chest pain, palpitations, edema, syncope Gastrointestinal: denies: abdominal pain, nausea, vomiting, diarrhea Genitourinary: denies: urgency, dysuria, discharge Musculoskeletal: denies: back pain, joint swelling, arthralgia, myalgia Skin: denies: rash, lesions Neurological: denies: headache, weakness Hematological/Lymphatic: denies: easy bruising ED Past Medical Hx - Past Medical History Previous Medical History?: Yes Hx Asthma: Yes Additional medical history: bronchitis, MOLES. Neurofibromatosis - Surgical History Past Surgical History?: Yes Additional Surgical History: MOLES REMOVED FROM BACK OF HEAD - Family History Family history: hypertension - Social History Smoking Status: Former Smoker Substance Use Type: None - Medications Home Medications: Home Medications Medication Instructions Recorded Confirmed Last Taken Type Famotidine [Pepcid] 20 mg PO BID #60 tablet 01/24/18 Unknown Rx oxyCODONE /ACETAMINOPHEN [Percocet 1 tab PO Q6H PRN #30 tablet 01/24/18 Unknown Rx 5/325 mg] ALBUTEROL Inhaler [Proair] 2 puff IH QID PRN #1 inhalation 02/14/18 Unknown Rx ALBUTEROL NEB's [Proventil 0.083% 2.5 mg IH Q6H PRN #1 pkg 02/14/18 Unknown Rx NEBS] Cetirizine HCl [ZyrTEC] 10 mg PO QDAY 14 Days #14 capsule 02/14/18 Unknown Rx Fluticasone [Flonase] 1 spray NS QDAY 14 Days #1 bottle 02/14/18 Unknown Rx methylPREDNISolone [Medrol] 4 mg PO QDAY 6 Days #1 tab.ds.pk 02/14/18 Unknown Rx ED Physical Exam - General General appearance: alert, in no apparent distress - Head Head exam: Present: atraumatic, normocephalic, normal inspection - Eye Eye exam: Present: normal appearance, PERRL, EOMI Pupils: Present: normal accommodation - ENT ENT exam: Present: normal orophraynx, mucous membranes moist, normal external ear exam, other ( nasal mucosa is boggy with clear drainage). Absent: TM's normal bilaterally (bilateral TM congested without erythema) - Neck Neck exam: Present: normal inspection, tenderness, full ROM, other (no C-spine tenderness). Absent: lymphadenopathy - Respiratory Respiratory exam: Present: wheezes, other (dry cough). Absent: respiratory distress, rales, rhonchi, stridor, chest wall tenderness, accessory muscle use, decreased breath sounds, prolonged expiratory - Cardiovascular Cardiovascular Exam: Present: regular rate, normal rhythm, normal heart sounds. Absent: systolic murmur, diastolic murmur - GI/Abdominal GI/Abdominal exam: Present: soft, normal bowel sounds. Absent: tenderness - Extremities Exam Extremities exam: Present: normal inspection, full ROM, normal capillary refill , other (no clubbing, cyanosis or edema. +2 pulses to all extremities and no neurovascular compromise). Absent: tenderness, pedal edema, joint swelling, calf tenderness - Back Exam Back exam: Present: normal inspection, full ROM. Absent: tenderness - Neurological Exam Neurological exam: Present: alert, oriented X3, normal gait. Absent: motor sensory deficit, reflexes normal - Psychiatric Psychiatric exam: Present: normal affect, normal mood - Skin Skin exam: Present: warm, dry, intact, normal color. Absent: rash ED Course Vital Signs 02/14/18 19:44 Temperature 98.1 F Pulse Rate 80 Respiratory 22 Rate Blood Pressure 143/93 [Right] O2 Sat by Pulse 100 Oximetry - Reevaluation(s) Reevaluation #1: 02/14/18 20:31 Patient given albuterol 5 mg and Atrovent 1 mg nebulizer treatment and the physical 6 mg by mouth and will reevaluate. Reevaluation #2: 02/14/18 21:11 That she feels much better. Lung sounds are clear. ED Medical Decision Making - Medical Decision Making ED course: This is a 37-year-old female here for asthma exacerbation which she said started off as upper respiratory now he is wheezing and coughing. She says she does look albuterol prior to coming to the emergency room at 3 PM and it helped but now she is wheezing and feeling some shortness of breath. She says she is using her child's albuterol because she does not have any. Patient was seen by myself and examined and he is stable after nebulizer treatments and steroid. Patient states that he is feeling better. I discussed diagnosis and treatment plan the patient and he voiced understanding. A/P 1: Acute exacerbation of asthma, mild-nebulizer treatment in emergency room to include albuterol 5 mg and Atrovent 1 mg nebulizer and prednisone 60 mg by mouth and will discharge home and prednisone and refill his albuterol 2: Upper respiratory with cough and congestion-sent home in Zyrtec and Flonase. Patient given prescription for Zyrtec, Flonase, prednisone Dosepak and albuterol. Pt educated on diagnosis, medication, need to follow-up, and since he does not have a primary care physician and has access I will refer him to Dr. Alcantara primary care provider management of his chronic asthma/bronchitis and also some [facility] as an option. Patient discharged home in stable condition to follow-up with primary care as referred. His vital signs are stable he's afebrile. She said she is feeling much better. I discussed with them to return to the emergency room if his symptoms turns and/or worsens and she voiced understanding Critical care attestation.: If time is entered above; I have spent that time in minutes in the direct care of this critically ill patient, excluding procedure time. ED Disposition Clinical Impression: Upper respiratory infection with cough and congestion Asthma attack Qualifiers: Asthma severity: mild Asthma persistence: intermittent Qualified Code(s): J45.21 - Mild intermittent asthma with (acute) exacerbation Disposition: DC-01 TO HOME OR SELFCARE Is pt being admited?: No Does the pt Need Aspirin: No Condition: Stable Instructions: Asthma (ED), Upper Respiratory Infection (ED), Acute Cough (ED) Additional Instructions: Please follow up with primary care physician as instructed. Please take medication as prescribed for asthma If your condition worsens, return to the emergency room. Her tach and Flonase is for nasal congestion. Prescriptions: ALBUTEROL Inhaler [Proair] 2 puff IH QID PRN #1 inhalation PRN Reason: cough and wheeze ALBUTEROL NEB's [Proventil 0.083% NEBS] 2.5 mg IH Q6H PRN #1 pkg PRN Reason: cough and wheeze Cetirizine HCl [ZyrTEC] 10 mg PO QDAY 14 Days #14 capsule Fluticasone [Flonase] 1 spray NS QDAY 14 Days #1 bottle methylPREDNISolone [Medrol] 4 mg PO QDAY 6 Days #1 tab.ds.pk Referrals: [facility] [Outside] - 2-3 Days ISI ALCANTARA MD [Staff Physician] - 2-3 Days Forms: Work/School Release Form(ED)
[2018-02-14] MEDS ORDERED: PROVENTIL IH ONE (19:44)
[2018-02-14] MEDS ORDERED: DELTASONE PO ONE (19:44)
[2018-02-14] MEDS ORDERED: ATROVENT IH ONE (19:45)
[2018-02-14 19:50] VITALS: BP 143/93
== END 2018-02-14 21:40 | disposition home or self-care (01) ==
LOC: ED 18:55
DX: J45.21 Mild intermittent asthma with (acute) exacerbation (principal); J06.9 Acute upper respiratory infection, unspecified; Z87.891 Personal history of nicotine dependence
CPT/HCPCS: 94640; 99282; J7512; 99283

== ENCOUNTER 2018-03-30 13:49 | Emergency (ER) | payer SELFPAY ==
[2018-03-30 14:57] LABS: Basophils # (Auto) 0.3 K/mm3 (0.0-0.1); Basophils % (Auto) 2.7 % (0.0-1.8); Eosinophils # (Auto) 0.3 K/mm3 (0.0-0.4); Lymphocytes # (Auto) 0.9 K/mm3 (1.2-5.4); Lymphocytes % (Auto) 8.1 % (13.4-35.0); Mean Corpuscular HGB Conc 29 % (30-34); Monocytes # (Auto) 1.2 K/mm3 (0.0-0.8); Monocytes % (Auto) 10.6 % (0.0-7.3); Platelet Count 504 K/mm3 (140-440); Red Blood Count 4.41 M/mm3 (3.65-5.03); Red Cell Distribution Width 19.1 % (13.2-15.2)
[2018-03-30 15:00] LABS: Hematocrit 29.7 % (30.3-42.9); Hemoglobin 8.7 gm/dl (10.1-14.3); Mean Corpuscular Hemoglobin 20 pg (28-32); Mean Corpuscular Volume 67 fl (79-97)
[2018-03-30 15:01] LABS: INR 0.95 (0.87-1.13)
[2018-03-30 15:02] LABS: Partial Thromboplastin Time 31.3 Sec. (24.2-36.6); Thrombin Time 16.2 Sec. (15.1-19.6)
[2018-03-30 15:03] LABS: BUN/Creatinine Ratio 13; Blood Urea Nitrogen 8 mg/dL (7-17); Calcium 7.8 mg/dL (8.4-10.2); Hemolysis Index 0
--- NOTE | 2018-03-30 16:51 | Cat Scan Report ---
FINAL REPORT EXAM: CT HEAD/BRAIN WO CON HISTORY: neuro deficits < 6hrs or sx present upon awakening COMPARISON: None. TECHNIQUE: Multiple contiguous axial images were obtained from the skullbase to the vertex without administration of IV contrast. FINDINGS: Brain volume is normal for age. No hemorrhage, mass, mass effect, or midline shift. Ventricles are not enlarged. Normal basal cisterns. No pathologic extra-axial fluid collection. No evidence of acute infarct. No skull fracture. Paranasal sinuses and mastoid air cells are clear. Bilateral orbits are grossly intact. IMPRESSION: No acute intracranial abnormality.
[2018-03-30] MEDS ORDERED: ZOFRAN IM ONE (18:50)
[2018-03-30] MEDS ORDERED: DILAUDID IM ONE (18:50)
[2018-03-30] MEDS ORDERED: TORADOL IM ONE (18:51)
--- NOTE | 2018-03-30 18:56 | Emergency Department Report ---
HPI - General Chief Complaint: Neuro Symptoms/Deficit Time Seen by Provider: 03/30/18 18:20 - HPI HPI: Room 9 The patient is a 37-year-old female presenting with chief complaint of back pain. The patient states she has a renal mass which has been causing worsening back pain over the past 5-6 months. The patient states she is scheduled for preop preparation to remove the renal mass this week. The patient states yesterday her back pain is worsening and began radiating from her back in all directions. Patient states she had tingling in both upper extremities and both lower extremities. The patient states she seen her primary physicians about this pain in the past and has been attributed to her mass. Patient states the pain has been worsening. The patient does obtain a score of 20/10. Today family states they noted the patient was stuttering and this prompted them to come to the ED Location: Back Duration: [See above] Quality: [See above] Severity: Pain Modifying factors: Movement worsens pain Context: [see above] Mode of transportation: [not driving] ED Past Medical Hx - Past Medical History Hx Asthma: Yes Additional medical history: bronchitis, MOLES. Neurofibromatosis - Surgical History Additional Surgical History: MOLES REMOVED FROM BACK OF HEAD. Thyroidectomy - Family History Family history: no significant - Social History Smoking Status: Never Smoker Substance Use Type: None - Medications Home Medications: Home Medications Medication Instructions Recorded Confirmed Last Taken Type Famotidine [Pepcid] 20 mg PO BID #60 tablet 01/24/18 Unknown Rx oxyCODONE /ACETAMINOPHEN [Percocet 1 tab PO Q6H PRN #30 tablet 01/24/18 Unknown Rx 5/325 mg] ALBUTEROL Inhaler [Proair] 2 puff IH QID PRN #1 inhalation 02/14/18 Unknown Rx ALBUTEROL NEB's [Proventil 0.083% 2.5 mg IH Q6H PRN #1 pkg 02/14/18 Unknown Rx NEBS] Cetirizine HCl [ZyrTEC] 10 mg PO QDAY 14 Days #14 capsule 02/14/18 Unknown Rx Fluticasone [Flonase] 1 spray NS QDAY 14 Days #1 bottle 02/14/18 Unknown Rx methylPREDNISolone [Medrol] 4 mg PO QDAY 6 Days #1 tab.ds.pk 02/14/18 Unknown Rx ALBUTEROL Inhaler [ProAir HFA 2 puff IH QID PRN #1 inhalation 03/02/18 Unknown Rx Inhaler] Amoxicillin 500 mg PO BID 10 Days #20 capsule 03/02/18 Unknown Rx Prednisone [predniSONE 10 mg 10 mg PO .TAPER #1 tab.ds.pk 03/02/18 Unknown Rx (6-Day Pack, 21 Tabs)] HYDROcodone/APAP 5-325 [[place] 1 - 2 each PO Q6HR PRN #20 tablet 03/30/18 Unknown Rx 5/325] Ibuprofen [Motrin 800 MG tab] 800 mg PO Q8HR PRN #20 tablet 03/30/18 Unknown Rx ED Review of Systems ROS: Stated complaint: BACK PAIN Other details as noted in HPI Constitutional: denies: fever Musculoskeletal: back pain Neurological: paresthesias Physical Exam - Physical Exam Vital Signs: Vital Signs 03/30/18 03/30/18 03/30/18 14:05 14:56 15:00 Temperature 98.4 F Pulse Rate 103 H 89 Respiratory 16 20 Rate Blood Pressure 170/98 Blood Pressure [Left] O2 Sat by Pulse 98 98 98 Oximetry 03/30/18 03/30/18 03/30/18 15:06 15:15 15:30 Temperature Pulse Rate 90 93 H Respiratory 20 18 Rate Blood Pressure Blood Pressure 125/78 [Left] O2 Sat by Pulse 98 97 98 Oximetry 03/30/18 03/30/18 03/30/18 15:31 16:59 17:00 Temperature Pulse Rate 90 93 H 90 Respiratory 19 14 20 Rate Blood Pressure 125/78 125/78 125/84 Blood Pressure [Left] O2 Sat by Pulse 97 95 Oximetry 03/30/18 03/30/18 03/30/18 17:15 17:31 17:45 Temperature Pulse Rate 90 88 90 Respiratory 21 18 20 Rate Blood Pressure 125/78 125/78 125/78 Blood Pressure [Left] O2 Sat by Pulse 99 98 97 Oximetry 03/30/18 03/30/18 03/30/18 18:00 18:15 18:31 Temperature Pulse Rate 91 H 94 H 94 H Respiratory 21 21 24 Rate Blood Pressure 116/78 116/78 116/78 Blood Pressure [Left] O2 Sat by Pulse 98 97 98 Oximetry Physical Exam: GENERAL: The patient is well-developed well-nourished female lying on stretcher not appearing to be in acute distress HEENT: Normocephalic. Atraumatic. Extraocular motions are intact. Patient has moist mucous membranes. NECK: Supple. Trachea midline CHEST/LUNGS: Clear to auscultation. There is no respiratory distress noted. HEART/CARDIOVASCULAR: Regular. There is no tachycardia. There is no gallop rub or murmur. ABDOMEN: Abdomen is soft, nontender. Patient has normal bowel sounds. There is no abdominal distention. SKIN: There is no rash. There is no edema. There is no diaphoresis. NEURO: The patient is awake, alert, and oriented. The patient is cooperative. The patient has no focal neurologic deficits. The patient has normal speech with rare stuttering. There is no slurred speech or aphasia. Cranial nerves II through XII grossly intact, no drift. Medical Dir equal bilaterally MUSCULOSKELETAL: Patient points to the lumbar spine as a source of her pain. No deformities appreciated of the spine. There is no evidence of acute injury. ED Course Vital Signs 03/30/18 03/30/18 03/30/18 14:05 14:56 15:00 Temperature 98.4 F Pulse Rate 103 H 89 Respiratory 16 20 Rate Blood Pressure 170/98 Blood Pressure [Left] O2 Sat by Pulse 98 98 98 Oximetry 03/30/18 03/30/18 03/30/18 15:06 15:15 15:30 Temperature Pulse Rate 90 93 H Respiratory 20 18 Rate Blood Pressure Blood Pressure 125/78 [Left] O2 Sat by Pulse 98 97 98 Oximetry 03/30/18 03/30/18 03/30/18 15:31 16:59 17:00 Temperature Pulse Rate 90 93 H 90 Respiratory 19 14 20 Rate Blood Pressure 125/78 125/78 125/84 Blood Pressure [Left] O2 Sat by Pulse 97 95 Oximetry 03/30/18 03/30/18 03/30/18 17:15 17:31 17:45 Temperature Pulse Rate 90 88 90 Respiratory 21 18 20 Rate Blood Pressure 125/78 125/78 125/78 Blood Pressure [Left] O2 Sat by Pulse 99 98 97 Oximetry 03/30/18 03/30/18 03/30/18 18:00 18:15 18:31 Temperature Pulse Rate 91 H 94 H 94 H Respiratory 21 21 24 Rate Blood Pressure 116/78 116/78 116/78 Blood Pressure [Left] O2 Sat by Pulse 98 97 98 Oximetry - Consultations Consultation #1: 03/30/18 19:15 Tele-neurology paged 03/30/18 19:[address] Rocha- recommends performing CT cervical spine with IV contrast to rule out tumor compressing the spinal cord. ED Medical Decision Making - Lab Data Result diagrams: 03/30/18 14:28 03/30/18 14:28 Laboratory Tests 03/30/18 03/30/18 03/30/18 14:27 14:28 14:28 WBC 11.2 H RBC 4.41 Hgb 8.7 L Hct 29.7 L MCV 67 L MCH 20 L MCHC 29 L RDW 19.1 H Plt Count 504 H Lymph % (Auto) 8.1 L [place] % (Auto) 10.6 H Eos % (Auto) 3.0 Baso % (Auto) 2.7 H Lymph # 0.9 L [place] # 1.2 H Eos # 0.3 Baso # 0.3 H Seg Neutrophils % 75.6 H Seg Neutrophils # 8.5 H PT 13.2 INR 0.95 APTT 31.3 Thrombin Time 16.2 Sodium Potassium Chloride Carbon Dioxide Anion Gap BUN Creatinine Estimated GFR BUN/Creatinine Ratio Glucose POC Glucose 95 Calcium Troponin T 03/30/18 03/30/18 14:28 15:30 WBC RBC Hgb Hct MCV MCH MCHC RDW Plt Count Lymph % (Auto) [place] % (Auto) Eos % (Auto) Baso % (Auto) Lymph # [place] # Eos # Baso # Seg Neutrophils % Seg Neutrophils # PT INR APTT Thrombin Time Sodium 137 Potassium 3.8 Chloride 95.9 L Carbon Dioxide 24 Anion Gap 21 BUN 8 Creatinine 0.6 L Estimated GFR > 60 BUN/Creatinine Ratio 13 Glucose 99 POC Glucose 92 Calcium 7.8 L Troponin T < 0.010 - Radiology Data Radiology results: report reviewed (CT head, CT cervical spine), image reviewed (CT head, CT cervical spine) [facility] [address] [place] [address] Cat Scan Report Signed Patient: EMILEE SALMERON MR#: [id number] : 1980 Acct:[id number] Age/Sex: 37 / F ADM Date: 03/30/18 Loc: ED Attending Dr: Ordering Physician: ED DOC, MD Date of Service: 03/30/18 Procedure(s): CT head/brain wo con Accession Number(s): [id number] cc: ED MD LAVONNE FINAL REPORT EXAM: CT HEAD/BRAIN WO CON HISTORY: neuro deficits lt; 6hrs or sx present upon awakening COMPARISON: None. TECHNIQUE: Multiple contiguous axial images were obtained from the skullbase to the vertex without administration of IV contrast. FINDINGS: Brain volume is normal for age. No hemorrhage, mass, mass effect, or midline shift. Ventricles are not enlarged. Normal basal cisterns. No pathologic extra-axial fluid collection. No evidence of acute infarct. No skull fracture. Paranasal sinuses and mastoid air cells are clear. Bilateral orbits are grossly intact. IMPRESSION: No acute intracranial abnormality. Transcribed By: ELIJAH Dictated By: RAMA LIAO MD Electronically Authenticated By: RAMA LIAO MD Signed Date/Time: 03/30/181645 DD/ 45 TD/TT: 03/30/181645 [facility] [address] [place] [address] Cat Scan Report Signed Patient: EMILEE SALMERON MR#: [id number] : 1980 Acct:[id number] Age/Sex: 37 / F ADM Date: 03/30/18 Loc: ED Attending Dr: Ordering Physician: PARISH SHERMAN MD Date of Service: 03/30/18 Procedure(s): CT cervical spine w con Accession Number(s): [id number] cc: PARISH SHERMAN MD FINAL REPORT PROCEDURE: CT CERVICAL SPINE W CON TECHNIQUE: Computerized tomography of the cervical spine was performed from the skull base to T1 without contrast material. HISTORY: neurofibromatosis, bilat arm and leg paresthesia COMPARISON: No prior studies are available for comparison. FINDINGS: There is loss of cervical lordosis. Vertebral height is within normal limits. An acute fracture is not identified. An irregular hypodense fluid collection is identified in the left lobe thyroid and isthmus measuring 2.1 x 3.4 x 6.1 centimeters in transverse, AP and craniocaudal dimensions. There also a few pockets of air within this fluid collection. Visualized lung apices are clear. C1-2: No significant abnormality. C2-3: No significant abnormality. C3-4: No significant abnormality. C4-5: No significant abnormality. C5-6: No significant abnormality. C6-7: No significant abnormality. C7-T1: No significant abnormality. IMPRESSION: There is no evidence of any spinal canal or neural foraminal compromise. An irregular fluid collection in the region of left lobe thyroid and isthmus may represent an abscess in the appropriate clinical setting. If there is any history of recent surgery this may also represent a benign postoperative fluid collection. Clinical correlation is recommended.. Transcribed By: UBC Dictated By: STEVEN BRITO Electronically Authenticated By: STEVEN BRITO Signed Date/Time: 03/30/182044 DD/ 44 TD/TT: 03/30/182044 - Differential Diagnosis acute on chronic pain, anxiety, renal mass, ICH, CVA Critical care attestation.: If time is entered above; I have spent that time in minutes in the direct care of this critically ill patient, excluding procedure time. ED Disposition Clinical Impression: Acute exacerbation of chronic low back pain, Stuttering Disposition: TO HOME OR SELFCARE Is pt being admited?: No Does the pt Need Aspirin: No Condition: Stable Additional Instructions: Return to the emergency department immediately should you develop worsening symptoms, fever, inability to tolerate food or liquid or any other concerns. Prescriptions: HYDROcodone/APAP 5-325 [[place] 5/325] 1 - 2 each PO Q6HR PRN #20 tablet PRN Reason: Pain Ibuprofen [Motrin 800 MG tab] 800 mg PO Q8HR PRN #20 tablet PRN Reason: Pain, Moderate (4-6) Referrals: PRIMARY CARE, [Primary Care Provider] - [facility] Time of Disposition: 21:47
--- NOTE | 2018-03-30 20:50 | Cat Scan Report ---
FINAL REPORT PROCEDURE: CT CERVICAL SPINE W CON TECHNIQUE: Computerized tomography of the cervical spine was performed from the skull base to T1 without contrast material. HISTORY: neurofibromatosis, bilat arm and leg paresthesia COMPARISON: No prior studies are available for comparison. FINDINGS: There is loss of cervical lordosis. Vertebral height is within normal limits. An acute fracture is not identified. An irregular hypodense fluid collection is identified in the left lobe thyroid and isthmus measuring 2.1 x 3.4 x 6.1 centimeters in transverse, AP and craniocaudal dimensions. There also a few pockets of air within this fluid collection. Visualized lung apices are clear. C1-2: No significant abnormality. C2-3: No significant abnormality. C3-4: No significant abnormality. C4-5: No significant abnormality. C5-6: No significant abnormality. C6-7: No significant abnormality. C7-T1: No significant abnormality. IMPRESSION: There is no evidence of any spinal canal or neural foraminal compromise. An irregular fluid collection in the region of left lobe thyroid and isthmus may represent an abscess in the appropriate clinical setting. If there is any history of recent surgery this may also represent a benign postoperative fluid collection. Clinical correlation is recommended..
[2018-03-30 22:19] VITALS: BP 121/74
== END 2018-03-30 22:00 | disposition home or self-care (01) ==
LOC: ED 13:49
DX: M54.5 Low back pain (principal); G89.29 Other chronic pain; R47.82 Fluency disorder in conditions classified elsewhere; J45.909 Unspecified asthma, uncomplicated; Z79.899 Other long term (current) drug therapy; F98.5 Adult onset fluency disorder; E89.0 Postprocedural hypothyroidism
CPT/HCPCS: 36415; 70450; 72126; 80048; 82962; 84484; 85025; 85610; 85670; 85730; 93005; 93010; 96372; 99284; J1170; J1885; J2405; Q9967

== ENCOUNTER 2018-12-19 06:10 | Emergency (ER) | payer MEDICAID ==
[2018-12-19 06:43] LABS: Bilirubin,Urine NEG (Negative); Blood,Urine SM (Negative); Color,Urine Yellow (Yellow); Urobilinogen,Urine < 2.0 mg/dL (<2.0)
[2018-12-19] MEDS ORDERED: NACL 0.9% 1000 ML 1,000 ML IV ONE (08:21)
--- NOTE | 2018-12-19 08:28 | Emergency Department Report ---
ED Abdominal Pain HPI - General Chief Complaint: Abdominal Pain Stated Complaint: PAINFUL BREATHING BACK PAIN Time Seen by Provider: 12/19/18 08:02 Source: patient Mode of arrival: Ambulatory Limitations: No Limitations - History of Present Illness Initial Comments: Patient is a 38-year-old -[place] female who comes to the ER today complaining of right side pain. She states that she is having spasms in her lower back and that she short of breath. 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 She denies any dysuria. She has no fever. Her vital signs are stable on triage. Patient is a poor informant and she has no family here with her at present. 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 She has had no chemotherapy. She states that she has a follow-up appointment at [facility] this week. Patient also states that she had surgery a couple months ago but is unable to tell me the details of the surgery. The doctor that she follows with his Dr. Dean at [facility] but she does not know what kind of doctor that is. Later in the patient's ER stay her sister arrived. The sister is actually here from [place] to help sort out what's going on with her sister. Sr. states that the patient has been giving the family limited information. I suspect that this is not in an attempt to hide from family but because the patient does not understand the plan of care herself. The sister was able to share that the patient has a history of neurofibromatosis. I'm not sure that this is her resolve her cause of the metastatic lesion suggested on CAT scan. The sister is not clear of any real plan of care for the cancer. They've been given various information about whether or not this is a malignancy or not. She has had a biopsy of her long and the biopsy results are pending but it sounds like this biopsy was done months ago. Dr. Carrillo has discussed with radiology the results of the CAT scan. The family states that they are no longer receive care at [facility] because they feel like her condition has not been managed promptly and timely. They're attempting to seek [facility] medical assistance but have not started that process as of yet. Severity scale (0 -10): 10 - Related Data Previous Rx's Medication Instructions Recorded Last Taken Type Famotidine [Pepcid] 20 mg PO BID #60 tablet 05/15/18 Unknown Rx oxyCODONE /ACETAMINOPHEN [Percocet 1 tab PO Q6H PRN #30 tablet 01/24/18 Unknown Rx 5/325 mg] ALBUTEROL Inhaler (OR & NICU) 2 puff IH QID PRN #1 inhalation 02/14/18 Unknown Rx [Proair] ALBUTEROL NEB's [Proventil 0.083% 2.5 mg IH Q6H PRN #1 pkg 02/14/18 Unknown Rx NEBS] Cetirizine HCl [ZyrTEC] 10 mg PO QDAY 14 Days #14 capsule 02/14/18 Unknown Rx methylPREDNISolone [Medrol] 4 mg PO QDAY 6 Days #1 tab.ds.pk 02/14/18 Unknown Rx Amoxicillin 500 mg PO BID 10 Days #20 capsule 03/02/18 Unknown Rx Prednisone [predniSONE 10 mg 10 mg PO .TAPER #1 tab.ds.pk 03/02/18 Unknown Rx (6-Day Pack, 21 Tabs)] HYDROcodone/APAP 5-325 [[place] 1 - 2 each PO Q6HR PRN #20 tablet 03/30/18 Unknown Rx 5/325] Ibuprofen [Motrin 800 MG tab] 800 mg PO Q8HR PRN #20 tablet 03/30/18 Unknown Rx ALBUTEROL Inhaler (OR & NICU) 2 puff IH QID PRN #1 inhalation 06/24/18 Unknown Rx [ProAir HFA Inhaler] Fluticasone [Flonase] 1 spray NS QDAY 14 Days #1 bottle 06/24/18 Unknown Rx Olopatadine HCl [Pataday] 2.5 ml OP DAILY #1 bottle 06/24/18 Unknown Rx predniSONE [Deltasone] 50 mg PO QDAY #5 tab 06/24/18 Unknown Rx Allergies Allergy/AdvReac Type Severity Reaction Status Date / Time No Known Allergies Allergy Verified 04/04/17 09:06 ED Review of Systems ROS: Stated complaint: PAINFUL BREATHING BACK PAIN Other details as noted in HPI Comment: All other systems reviewed and negative Constitutional: denies: chills Eyes: denies: eye pain ENT: denies: throat pain Respiratory: see HPI, shortness of breath Cardiovascular: denies: palpitations Endocrine: denies: flushing Gastrointestinal: as per HPI, abdominal pain Genitourinary: denies: dysuria Musculoskeletal: denies: back pain Skin: denies: rash Neurological: denies: weakness Psychiatric: denies: depression Hematological/Lymphatic: denies: easy bleeding ED Past Medical Hx - Past Medical History Previous Medical History?: Yes Hx of Cancer: Yes (Neurofibromatosis) Hx Asthma: Yes Additional medical history: bronchitis, MOLES. Neurofibromatosis - Surgical History Past Surgical History?: Yes Additional Surgical History: MOLES REMOVED FROM BACK OF HEAD. Thyroidectomy - Family History Family history: other (MOM DEC OF CA- UNKNOWN TYPE) - Social History Smoking Status: Never Smoker Substance Use Type: None - Medications Home Medications: Home Medications Medication Instructions Recorded Confirmed Last Taken Type Famotidine [Pepcid] 20 mg PO BID #60 tablet 01/24/18 Unknown Rx oxyCODONE /ACETAMINOPHEN [Percocet 1 tab PO Q6H PRN #30 tablet 01/24/18 Unknown Rx 5/325 mg] ALBUTEROL Inhaler (OR & NICU) 2 puff IH QID PRN #1 inhalation 02/14/18 Unknown Rx [Proair] ALBUTEROL NEB's [Proventil 0.083% 2.5 mg IH Q6H PRN #1 pkg 02/14/18 Unknown Rx NEBS] Cetirizine HCl [ZyrTEC] 10 mg PO QDAY 14 Days #14 capsule 02/14/18 Unknown Rx methylPREDNISolone [Medrol] 4 mg PO QDAY 6 Days #1 tab.ds.pk 02/14/18 Unknown Rx Amoxicillin 500 mg PO BID 10 Days #20 capsule 03/02/18 Unknown Rx Prednisone [predniSONE 10 mg 10 mg PO .TAPER #1 tab.ds.pk 03/02/18 Unknown Rx (6-Day Pack, 21 Tabs)] HYDROcodone/APAP 5-325 [[place] 1 - 2 each PO Q6HR PRN #20 tablet 03/30/18 Unknown Rx 5/325] Ibuprofen [Motrin 800 MG tab] 800 mg PO Q8HR PRN #20 tablet 03/30/18 Unknown Rx ALBUTEROL Inhaler (OR & NICU) 2 puff IH QID PRN #1 inhalation 06/24/18 Unknown Rx [ProAir HFA Inhaler] Fluticasone [Flonase] 1 spray NS QDAY 14 Days #1 bottle 06/24/18 Unknown Rx Olopatadine HCl [Pataday] 2.5 ml OP DAILY #1 bottle 06/24/18 Unknown Rx predniSONE [Deltasone] 50 mg PO QDAY #5 tab 06/24/18 Unknown Rx ED Physical Exam - General Limitations: No Limitations General appearance: in distress, obese - Head Head exam: Present: normocephalic - Eye Eye exam: Present: PERRL, EOMI - ENT ENT exam: Present: mucous membranes moist - Neck Neck exam: Present: normal inspection - Respiratory Respiratory exam: Present: normal lung sounds bilaterally, other (DEC BILATERAL BAES) - Cardiovascular Cardiovascular Exam: Present: regular rate - GI/Abdominal GI/Abdominal exam: Present: soft, tenderness, other (GEN ABD PAIN; OBESE) - Rectal Rectal exam: Present: deferred - Extremities Exam Extremities exam: Present: normal inspection, full ROM - Back Exam Back exam: Present: normal inspection, full ROM - Neurological Exam Neurological exam: Present: alert, oriented X3, other (POOR INFORMANT) - Psychiatric Psychiatric exam: Present: depressed - Skin Skin exam: Present: warm, dry ED Course Vital Signs 12/19/18 12/19/18 06:14 06:19 Temperature 98.0 F 98 F Pulse Rate 97 H 96 H Respiratory 18 18 Rate Blood Pressure 121/73 121/73 O2 Sat by Pulse 100 100 Oximetry ED Medical Decision Making - Lab Data Result diagrams: 12/19/18 08:32 12/19/18 08:29 - Radiology Data Radiology results: report reviewed, image reviewed - Medical Decision Making Labs 12/19/18 12/19/18 12/19/18 08:29 08:32 Unknown WBC 7.7 RBC 4.49 Hgb 9.4 L Hct 30.5 MCV 68 L MCH 21 L MCHC 31 RDW 17.9 H Plt Count 386 Lymph % (Auto) 7.7 L [place] % (Auto) 10.8 H Eos % (Auto) 2.9 Baso % (Auto) 0.7 Lymph # 0.6 L [place] # 0.8 Eos # 0.2 Baso # 0.1 Seg Neutrophils % 77.9 H Seg Neutrophils # 6.0 Sodium 137 Potassium 4.6 Chloride 99.3 Carbon Dioxide 27 Anion Gap 15 BUN 8 Creatinine 0.4 L Estimated GFR > 60 BUN/Creatinine Ratio 20 Glucose 92 Calcium 8.2 L Total Bilirubin 0.20 AST 18 ALT 10 Alkaline Phosphatase 106 Total Protein 7.4 Albumin 3.4 L Albumin/Globulin Ratio 0.9 Urine Color Yellow Urine Turbidity Clear Urine pH 8.0 H Ur Specific [place] 1.013 Urine Protein 30 mg/dl Urine Glucose (UA) Neg Urine Ketones Neg Urine Blood Sm Urine Nitrite Neg Urine Bilirubin Neg Urine Urobilinogen < 2.0 Ur Leukocyte Esterase Neg Urine WBC (Auto) 3.0 Urine RBC (Auto) 4.0 U Epithel Cells (Auto) 2.0 Vital Signs 12/19/18 12/19/18 06:14 06:19 Temperature 98.0 F 98 F Pulse Rate 97 H 96 H Respiratory 18 18 Rate Blood Pressure 121/73 121/73 O2 Sat by Pulse 100 100 Oximetry MEDICATED WITH LORTAB CT NOTED DISCUSSED WITH DR CARRILLO FAMILY HAS ELECTED TO TAKE PT TO ONCOLOGY VSS ON DC Critical care attestation.: If time is entered above; I have spent that time in minutes in the direct care of this critically ill patient, excluding procedure time. ED Disposition Clinical Impression: Abdominal pain, Abdominal mass Disposition: DC-01 TO HOME OR SELFCARE Is pt being admited?: Yes Does the pt Need Aspirin: No Condition: Stable Referrals: DAMIEN RAMOS MD [Primary Care Provider] - 3-5 Days Time of Disposition: 11:37
[2018-12-19 08:54] LABS: Basophils # (Auto) 0.1 K/mm3 (0.0-0.1); Basophils % (Auto) 0.7 % (0.0-1.8); Eosinophils # (Auto) 0.2 K/mm3 (0.0-0.4); Eosinophils % (Auto) 2.9 % (0.0-4.3); Hematocrit 30.5 % (30.3-42.9); Hemoglobin 9.4 gm/dl (10.1-14.3); Lymphocytes # (Auto) 0.6 K/mm3 (1.2-5.4); Lymphocytes % (Auto) 7.7 % (13.4-35.0); Mean Corpuscular HGB Conc 31 % (30-34); Monocytes # (Auto) 0.8 K/mm3 (0.0-0.8); Monocytes % (Auto) 10.8 % (0.0-7.3); Platelet Count 386 K/mm3 (140-440); Red Blood Count 4.49 M/mm3 (3.65-5.03); Red Cell Distribution Width 17.9 % (13.2-15.2)
[2018-12-19 08:55] LABS: Mean Corpuscular Volume 68 fl (79-97)
[2018-12-19 09:04] LABS: Alanine Aminotransferase 10 units/L (7-56); Albumin 3.4 g/dL (3.9-5); BUN/Creatinine Ratio 20; Blood Urea Nitrogen 8 mg/dL (7-17); Calcium 8.2 mg/dL (8.4-10.2); Hemolysis Index 4
[2018-12-19] MEDS ORDERED: NORCO 5/325 PO ONE (10:56)
--- NOTE | 2018-12-19 11:02 | Cat Scan Report ---
PROCEDURE: CT ABDOMEN PELVIS W CON TECHNIQUE: Computerized axial tomography of the abdomen and pelvis was performed after the IV injecti on of iodinated nonionic contrast. Coronal and sagittal reconstructed imaging provided. CT DOSE LENGTH PRODUCT: 3378.7 mGy-cm. HISTORY: ABD PAIN RECENT CA COMPARISONS: CT abdomen pelvis January 21, 2018. FINDINGS: Abdomen: Minimal scarring and/or discoid subsegmental atelectasis in both lung bases. Small right pleural effu toyin. Series 2:30 demonstrates a pleural-based nodularity or loculated pleural effusion measuring 1.4 x 2.7 cm. Liver: Ill-defined rim-enhancing fluid collection in the right liver with lobulated borders and multi loculated components extends from the right liver into the region of the right upper renal cortex and measures 10 x 7 cm and suggests an hepatic abscess with renal extension. Surrounding stranding aroun d the extrahepatic component noted. Mild surrounding decreased attenuation within the liver suggests inflammation and/or edema. Gallbladder: Mildly distended. No wall thickening. Left kidney is unremarkable. Stomach, spleen, pancreas, and left adrenal are unremarkable. Right adrenal is not clearly visualized . No aneurysm. No dissection. No significant atherosclerotic disease. Small rim-enhancing fluid collection or lesion is posterior to the IVC on series 2:61. Otherwise IVC appears be patent with contrast. Portal vein is patent. There is no periaortic or retroperitoneal adenopathy or mass. [id number]-[id number] stool. No wall thickening or inflammatory changes. Terminal ileum is unremarkable. Appendix is normal. Small bowel loops are unremarkable. No obstructive pattern. No air-fluid levels. Series 2:48 small lesion medial to the spleen measures 1.8 cm with subtle rim enhancement. Series 2:75 large rim-enhancing low-attenuation lesion anterior to the left kidney measures 6.0 x 5.0 cm. No mesenteric adenopathy. Some minimal stranding identified. No free air. No free fluid. Fat-containing umbilical hernia. No strangulation. Pelvis: Uterus: Heterogeneous. Prominent area in the right fundus of uterus with calcification probably repre sents a degenerating or degenerated fibroid. Oval-shaped, low attenuation 3.5 cm lesion in the left adnexa may represent an ovary with ovarian cys t. Bladder: Unremarkable. There is no pelvic mass or adenopathy. Inguinal regions are unremarkable. Bones: No suspicious osseous lesions on this limited examination of the skeleton. Metastatic disease better evaluated with bone scan. Degenerative changes are in the spine. IMPRESSION: * Comparison with prior will be made as an addendum once requested prior images and report are provi ded. * Right pleural effusion is nonspecific. Possibly malignant. * Pleural-based lesion in the right lower lobe versus loculated pleural effusion. Pleural-based lesi on favored. * Abscess, necrotic lesion, or complex cystic lesion in the right liver extending into the upper cor taisha of the right kidney. Small component extending towards the IVC without evidence for thrombophlebi tis at this time. * Small rim-enhancing lesions in the left upper quadrant abdomen, left mid abdomen, and left adnexa which are concerning for malignancy. * 12/19/2018 at 0757 PT: I, Jason Fowler MD, discussed the findings over the phone with Dr. Levin. This document is electronically signed by Jason Fowler MD., December 19 2018 11:00:16 AM ET
[2018-12-19 12:12] VITALS: BP 120/71
== END 2018-12-19 12:11 | disposition home or self-care (01) ==
LOC: ED 06:10
DX: R19.00 Intra-abdominal and pelvic swelling, mass and lump, unspecified site (principal); J45.909 Unspecified asthma, uncomplicated; Z85.848 Personal history of malignant neoplasm of other parts of nervous tissue; Z90.89 Acquired absence of other organs; Z79.899 Other long term (current) drug therapy
CPT/HCPCS: 36415; 74177; 80053; 81001; 85025; 99284; J7030; Q9967

== ENCOUNTER 2019-01-03 | Emergency (ER) | payer MEDICAID, OTHER ==
[2019-01-03] MEDS ORDERED: NACL 0.9% 1000 ML 1,000 ML IV ONE (01:12)
[2019-01-03] MEDS ORDERED: ZOFRAN IV ONE (01:12)
--- NOTE | 2019-01-03 01:12 | Emergency Department Report ---
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 Family states that patient was noted to be unresponsive and was choking on her saliva. Family states that patient had white phlegm present. Femoral states patient was unresponsive for. 20 minutes. Family denies any seizure activity however. Patient denies any urinary incontinence. Patient states that she was just recently seen by Dr. Dean at [facility] and is scheduled to begin chemoradiation therapy January 16 for her malignancy secondary to her neural fibromas. Family states that they did not have to perform CPR on palpation however. Severity scale (0 -10): 0 - Related Data Home Medications Medication Instructions Recorded Confirmed Last Taken oxyCODONE /ACETAMINOPHEN [Percocet 5 - 325 mg PO Q6H PRN 01/03/19 01/03/19 Unknown 5/325 mg] Previous Rx's Medication Instructions Recorded Last Taken Type Ibuprofen [Motrin 800 MG tab] 800 mg PO Q8HR PRN #20 tablet 03/30/18 Unknown Rx Allergies Allergy/AdvReac Type Severity Reaction Status Date / Time No Known Allergies Allergy Verified 04/04/17 09:06 ED Review of Systems ROS: Stated complaint: VOMITTING/AMS Other details as noted in HPI Constitutional: denies: chills, fever Eyes: denies: eye pain, eye discharge, vision change ENT: denies: ear pain, throat pain Respiratory: denies: cough, shortness of breath, wheezing Cardiovascular: denies: chest pain, palpitations Endocrine: no symptoms reported Gastrointestinal: vomiting Genitourinary: denies: urgency, dysuria, discharge Musculoskeletal: denies: back pain, joint swelling, arthralgia Skin: denies: rash, lesions Neurological: denies: headache, weakness, paresthesias Psychiatric: denies: anxiety, depression Hematological/Lymphatic: denies: easy bleeding, easy bruising ED Past Medical Hx - Past Medical History Hx Asthma: Yes Additional medical history: bronchitis, MOLES. Neurofibromatosis. cystic fibrosis - Surgical History Additional Surgical History: MOLES REMOVED FROM BACK OF HEAD. Thyroidectomy. tumor removal from back - Social History Smoking Status: Unknown if ever smoked - Medications Home Medications: Home Medications Medication Instructions Recorded Confirmed Last Taken Type Ibuprofen [Motrin 800 MG tab] 800 mg PO Q8HR PRN #20 tablet 03/30/18 01/03/19 Unknown Rx oxyCODONE /ACETAMINOPHEN [Percocet 5 - 325 mg PO Q6H PRN 01/03/19 01/03/19 Unknown History 5/325 mg] ED Physical Exam - General Limitations: Altered Mental Status, Physical Limitation General appearance: alert, other (uncomfortable; dehydrated) - Head Head exam: Present: atraumatic, normocephalic - Eye Eye exam: Present: normal appearance - ENT ENT exam: Present: mucous membranes dry - Neck Neck exam: Present: normal inspection - Respiratory Respiratory exam: Present: other (coarse breath sounds in the bilateral lung shankar). Absent: respiratory distress - Cardiovascular Cardiovascular Exam: Present: regular rate, normal rhythm. Absent: systolic murmur, diastolic murmur, rubs, gallop - GI/Abdominal GI/Abdominal exam: Present: soft, tenderness (noted in the right and left lower quadrant abdominal region), normal bowel sounds - Extremities Exam Extremities exam: Present: normal inspection - Back Exam Back exam: Present: normal inspection - Neurological Exam Neurological exam: Present: alert, oriented X3, CN II-XII intact. Absent: motor sensory deficit - Psychiatric Psychiatric exam: Present: normal affect, normal mood - Skin Skin exam: Present: warm, dry, intact, normal color, other (neurofibromas present throughout skin). Absent: rash ED Course Vital Signs 01/03/19 01/03/19 01/03/19 00:22 01:24 02:47 Temperature 99.4 F Pulse Rate 112 H Respiratory 20 20 20 Rate Blood Pressure 129/79 Blood Pressure [Right] O2 Sat by Pulse 97 96 Oximetry 01/03/19 01/03/19 02:48 04:10 Temperature Pulse Rate 94 H 78 Respiratory 20 17 Rate Blood Pressure Blood Pressure 127/72 122/80 [Right] O2 Sat by Pulse 98 99 Oximetry ED Medical Decision Making - Lab Data Result diagrams: 01/03/19 01:35 01/03/19 01:35 - EKG Data -: EKG Interpreted by [facility] EKG shows normal: sinus rhythm Rate: tachycardia - EKG Data When compared to previous EKG there are: no significant change Interpretation: no acute changes - Medical Decision Making Patient has had no subsequent seizure activity since. He is from. Patient has a normal neurologic exam is without a current time. Patient's case discussed with [facility] neurologist and Tylenol is listed there may be a component of seizure with a postictal component that potentially could explain unresponsive state of the patient. Patient case discussed with [facility] and they will accept patient for transfer for continued management and treatment to their facility as patient is due to begin chemotherapy and radiation at this facility. - Differential Diagnosis dehydration; NN medical; intracranial bleed; epidural hematoma Critical care attestation.: If time is entered above; I have spent that time in minutes in the direct care of this critically ill patient, excluding procedure time. ED Disposition Clinical Impression: Altered mental status, unspecified, Syncope, Anemia, Malignant peripheral nerve sheath tumor, Neurofibromatosis Disposition: [id number]/TX-[id number] ANOTHER TYPE HLTHCARE Is pt being admited?: No Condition: Stable Instructions: Syncope (ED) Time of Disposition: 05:50
[2019-01-03 01:54] LABS: Basophils # (Auto) 0.1 K/mm3 (0.0-0.1); Basophils % (Auto) 0.8 % (0.0-1.8); Eosinophils # (Auto) 0.5 K/mm3 (0.0-0.4); Hematocrit 28.3 % (30.3-42.9); Hemoglobin 8.7 gm/dl (10.1-14.3); Lymphocytes # (Auto) 0.4 K/mm3 (1.2-5.4); Lymphocytes % (Auto) 3.8 % (13.4-35.0); Mean Corpuscular HGB Conc 31 % (30-34); Monocytes # (Auto) 1.2 K/mm3 (0.0-0.8); Monocytes % (Auto) 11.5 % (0.0-7.3); Platelet Count 364 K/mm3 (140-440); Red Blood Count 4.21 M/mm3 (3.65-5.03); Red Cell Distribution Width 18.7 % (13.2-15.2)
[2019-01-03 01:55] LABS: Mean Corpuscular Volume 67 fl (79-97)
[2019-01-03 02:17] LABS: Alanine Aminotransferase 8 units/L (7-56); BUN/Creatinine Ratio 15; Blood Urea Nitrogen 9 mg/dL (7-17); Calcium 7.9 mg/dL (8.4-10.2); Hemolysis Index 1
--- NOTE | 2019-01-03 02:23 | Cat Scan Report ---
PROCEDURE: CT HEAD/BRAIN WO CON TECHNIQUE: Routine axial imaging was obtained of the brain without IV contrast. HISTORY: altered mental status COMPARISONS: 03/30/2018 FINDINGS: The ventricular system is appropriate in size and is symmetric. There is no evidence of acute stroke or hemorrhage. The basal cisterns appear normal. The visualized sinuses are clear. The calvarium appe ars intact. IMPRESSION: Within normal limits.. This document is electronically signed by Octavio Deleon MD., January 03 2019 02:21:12 AM ET
[2019-01-03] MEDS ORDERED: MORPHINE IV ONE (02:41)
--- NOTE | 2019-01-03 02:50 | XRay Report ---
PROCEDURE: XR CHEST 1V AP TECHNIQUE: Single portable AP chest radiograph. HISTORY: Chest pain. COMPARISONS: Chest CT January 21, 2018. FINDINGS: Opacification of the right lung base with elevation of the hemidiaphragm (probable eventration) and i rregular appearance of the right hilum. 7.7 cm ovoid opacity present within overlying the left upper lobe. Cardiac silhouette not significantly enlarged. No acute osseous abnormality detected. IMPRESSION: Abnormal exam with right sided eventration and volume loss, irregularity of the right hilum and large ovoid opacity overlying the left upper lung. Differential includes multifocal infection or neoplasti c process. RECOMMENDATION: Correlation with history/exam and chest CT for further evaluation. This document is electronically signed by Carlos Stein DO., January 03 2019 02:48:43 AM ET
[2019-01-03 05:00] LABS: HCG Qualitative,Urine Negative (Negative)
[2019-01-03 05:12] LABS: Bilirubin,Urine NEG (Negative); Blood,Urine NEG (Negative); Color,Urine Yellow (Yellow); Mucus,Urine FEW /HPF; Urobilinogen,Urine < 2.0 mg/dL (<2.0)
[2019-01-03 05:40] VITALS: BP 111/75
== END 2019-01-03 06:57 | disposition other institution (70) ==
LOC: ED
DX: R41.82 Altered mental status, unspecified (principal); R55 Syncope and collapse; D64.9 Anemia, unspecified; C47.9 Malignant neoplasm of peripheral nerves and autonomic nervous system, unspecified; J45.909 Unspecified asthma, uncomplicated
CPT/HCPCS: 36415; 70450; 71045; 80053; 81001; 81025; 83690; 83735; 84484; 85025; 93005; 93010; 96361; 96374; 96375; 99285; J2270; J2405; J7030